=== PATIENT | female | born 1945 | race Caucasian/White ===

== ENCOUNTER 2018-11-05 10:09 | Inpatient (IN) | payer OTHER ==
[2018-11-05] MEDS ORDERED: MORPHINE 2 MG/ML SYR ONE (11:06)
[2018-11-05] MEDS ORDERED: ONDANSETRON 4 MG/2 ML VIAL ONE ×2 (11:06→17:13)
[2018-11-05 11:09] LABS: Absolute Lymphocytes (CBC) 0.8 K/uL (0.7-4.9); Absolute Monocytes 0.6 K/uL (0.1-1.3); Absolute Neutrophil 4.5 K/uL (1.8-8.0); Basophils % 0.3 % (0-1.3); Eosinophils % 0.5 % (0-4.4); Hematocrit 35.8 % (36.0-45.0); Lymphocytes % 13.6 % (15.3-44.8); MPV 8.8 fL (7.6-11.3); Monocytes % 9.7 % (3.3-12.3); RBC Red Blood Cell Count 3.65 M/uL (3.86-4.86)
--- NOTE | 2018-11-05 11:28 | RAD REPORT ---
EXAM DESCRIPTION: CT - CTHCSPWOC - 11/05/2018 11:08 am CLINICAL HISTORY: Fall 2 days earlier, head and neck injury, hip pain COMPARISON: None. TECHNIQUE: Axial 5 mm thick images of the head were obtained. Axial 2 mm thick images of the cervic al spine were obtained with sagittal and coronal reconstruction images generated and reviewed. All CT scans are performed using dose optimization technique as appropriate and may include automated exposure control or mA/KV adjustment according to patient size. FINDINGS: No intracranial hemorrhage, mass, edema or acute intracranial finding. No acute cortical b ased infarction. No cortical edema or sulcal effacement. The patient has moderate severity atrophy an d chronic ischemic change. Ventricles are in proportion to the amount of volume loss. Physiologic and arterial calcifications are present. Partial opacification of the right side mastoid air cells noted . Mucosal thickening and air-fluid level present in the sphenoid sinus along with sclerotic, thickene d sphenoid sinus hill. No globe or orbit abnormality seen. No skull fracture. Cervical body height and alignment are normal. No disk space narrowing. No fracture or acute bony abn ormality. No pathologic bone process. Moderately prominent degenerative change present at the dens C1 level. Facet joint degenerative changes are present. Posterior ligamentous thickening and calcificat ions are present. Central canal detail is inherently limited. No paraspinal mass or hematoma. Patient has an overall fluid retention pattern in the subcutaneous fa tty tissues. Limited lung apex imaging shows bilateral pleural effusions. Reaching the lung apices, t hese are probably large pleural effusions. IMPRESSION: Moderate severity atrophy and chronic ischemic change with no acute intracranial finding . Acute and chronic sphenoid sinusitis and partial opacification of the right mastoid air cells. Prominent cervical spine degenerative change with no acute finding seen. Bilateral pleural effusions probably large as the pleural fluid reaches the each apex.
--- NOTE | 2018-11-05 12:02 | RAD REPORT ---
EXAM DESCRIPTION: RAD - Pelvis - 11/05/2018 11:49 am CLINICAL HISTORY: fall Fall, hip pain COMPARISON: No comparisons FINDINGS: The bones are osteopenic. Degenerative changes are present in both hips. No definitive fin ding to indicate fracture. Atherosclerosis is seen.
--- NOTE | 2018-11-05 12:03 | RAD REPORT ---
EXAM DESCRIPTION: RAD - Hip Right 2 View - 11/05/2018 11:49 am CLINICAL HISTORY: fall 2 days ago;Pain Fall, pain COMPARISON: Chest Single View dated 11/05/2018 FINDINGS: Soft tissues along the lateral aspect of the hip appear prominent which could indicate loc alized swelling or hematoma. Arthritic changes affect the right hip joint. An acute fracture is not s een. If the patient has difficulty with weight-bearing on the right hip, MR imaging would be recommen ded for followup.
--- NOTE | 2018-11-05 12:03 | RAD REPORT ---
EXAM DESCRIPTION: RAD - Hip Left 2 View - 11/05/2018 11:49 am CLINICAL HISTORY: fall;Pain Fall, pain COMPARISON: Pelvis dated 11/05/2018 FINDINGS: Moderate arthritic changes are present involving the left hip. There is slight inward rota tion of the femur which limits the quality of the projection. A definitive hip fracture cannot be con firmed. If the patient has difficulty with weight-bearing on the left hip, MR left hip may be useful for followup assessment.
--- NOTE | 2018-11-05 12:07 | RAD REPORT ---
EXAM DESCRIPTION: CT - Chest Abd Pelvis Wo Con - 11/05/2018 11:48 am CLINICAL HISTORY: Fall, hip pain, chest and abdominal pain COMPARISON: None. TECHNIQUE: Axial 5 millimeter thick images of the chest abdomen and pelvis were obtained without ora l or IV contrast. All CT scans are performed using dose optimization technique as appropriate and may include automated exposure control or mA/KV adjustment according to patient size. FINDINGS: Large bilateral pleural effusions are present occupying approximately 40% of each hemithor ax. Bilateral lower lobe atelectasis is present. There is some minimal alveolar opacification in each upper lobe. Interstitial thickening or edema present. No endobronchial lesions seen. No pneumothorax . No chest wall mass or abnormal axillary lymphadenopathy seen. Mediastinal and hilar regions show n o mass or lymphadenopathy. Dense Coronary artery calcifications are present. No pericardial thickeni ng or effusion. No cardiomegaly. Fluid retention is seen throughout the fatty tissues of the chest. Patient has a old rib fractures. An acute rib fracture is not confirmed. Patient has a fractured manu brium. Fracture line is indistinct which may indicate that it is subacute or incompletely healed. The liver, spleen and pancreas show no acute findings on noncontrast imaging. Large gallstones fill t he gallbladder. No biliary tree dilatation. No hydronephrosis. No obstructing or nonobstructing calculi. Isodense masses and pyelonephritis are n ot excluded. No adrenal abnormalities. No urinary bladder abnormalities. No acute uterine finding. Assessment is limited. Ovaries are atrophic. No adnexal mass. Uterine and pelvic floor calcifications are present. No dilated bowel loops or focal ball bowel wall thickening. Prominent diverticulosis in the tortuous and redundant sigmoid colon. No diverticulitis. No bulky lymphadenopathy, focal mass or omental thic kening. Small amount of ascites is present. Patient has fluid retention throughout the subcutaneous f atty tissues. Patient has a 7.5 centimeter fat filled ventral hernia at the left of midline. No bowel involvement. Neck is 2.5 cm. Disc and bone degenerative changes are present. No proximal femur fracture identifiable. No femoral h ead dislocation. L5 pars defects are present with grade 1 spondylolisthesis. Bones are diffusely oste openic. Prominent degenerative changes and disc space narrowing midthoracic spine. There is approxima tely 50% compression fracture of the L1 body seen as bi concave height loss of the endplates. There i s approximately 30% height loss in the T12 body with central lucency or bone loss. No associated soft tissue paraspinal mass. The central bone loss is not typical of a osteoporotic compression fracture or posttraumatic fracture. Findings are concerning for a marrow replacing process. Infectious/inflamm atory process would be a lesser consideration. No involvement of the pedicles. IMPRESSION: Large bilateral pleural effusions occupying at least 40% of each hemithorax. There is bi lateral lower lobe atelectasis. Patchy interstitial edema or infiltrate changes are present in each u pper lobe, more so on the right. Fracture of the manubrium with fracture line somewhat indistinct. This would favor a subacute or inco mpletely healed fracture. Correlation is needed with any localizing symptoms. No associated mediastin al hematoma or subcutaneous hematoma. No acute traumatic injury to the solid abdominal visceral or bowel. Lucent or lytic changes to the T12 body with approximately 30% loss in height. The central body bone loss changes are not typical for osteopenic or posttraumatic compression fractures. Findings are conc erning for malignancy or marrow replacing process. Infectious etiology not excluded. Approximately 50% compression of the L1 body. This is probably chronic but not fully characterized. Fluid retention throughout the subcutaneous fatty tissues. A small amount of ascites present.
--- NOTE | 2018-11-05 12:10 | RAD REPORT ---
EXAM DESCRIPTION: RAD - Chest Single View - 11/05/2018 11:49 am CLINICAL HISTORY: Hip fracture, fall COMPARISON: January 2009 TECHNIQUE: AP portable chest image was obtained 1127 hours . FINDINGS: Lungs are fibrotic as a baseline. Prominent interstitial markings throughout the lung fiel ds. Atelectasis versus infiltrate left lung base. Patchy opacification in the right upper lobe as wel l. Heart size within normal limits for portable imaging. No acute vascular engorgement. No pneumothor ax. No acute bony abnormality seen. No acute aortic findings suspected. IMPRESSION: No pneumothorax. Extensive interstitial opacification increased over prior imaging. Focal opacification in the retroca rdiac left base and right upper lung field are present. Interstitial opacification could be infiltrate or edema. Left base and right upper lung field finding s are suspicious for pneumonia.
[2018-11-05 12:16] LABS: Protime INR 1.29
[2018-11-05 12:33] LABS: ALT/SGPT 8 U/L (12-78); AST/SGOT 8 U/L (15-37); Albumin 1.7 g/dL (3.4-5.0); Alkaline Phosphatase 99 U/L (45-117); BUN Blood Urea Nitrogen 7 mg/dL (7-18); Bicarbonate 29 mmol/L (21-32); Bilirubin Direct 0.2 mg/dL (0-0.2); Bilirubin Total 0.6 mg/dL (0.2-1.0); Glucose Level 118 mg/dL (74-106); Magnesium 2.1 mg/dL (1.8-2.4); NT PRO-BNP 3328 pg/mL (<450); Potassium 3.6 mmol/L (3.5-5.1); Protein, Total 5.4 g/dL (6.4-8.2); Sodium Level 142 mmol/L (136-145); Troponin (Emerg Dept Use Only) 0.02 ng/mL (0.0-0.045)
--- NOTE | 2018-11-05 13:20 | EDPHYS ---
Physician Documentation [facility] Name: Jeanette Pineda Age: 73 yrs Sex: Female : 1945 Arrival Date: 11/05/2018 Time: 10:20 Bed 3 Private MD: ED Farhat Lopez HPI: 11/05 10:50 This 73 yrs old Female presents to ER via EMS with complaints of Fall Injury, cp Hip Pain. 10:50 Details of fall: The patient fell from an upright position. Onset: The symptoms/episode cp began/occurred 2 day(s) ago. Associated injuries: The patient sustained injury to the head, contusion, pelvis and left hip. Historical: - Allergies: 10:23 Iodine; sv - Home Meds: 10:37 None [Active]; aj1 - PMHx: 10:37 Diabetes - NIDDM; CVA; aj1 - PSHx: 10:37 Knee surgery; aj1 - Immunization history:: Flu vaccine is not up to date. - Social history:: Smoking status: Patient uses tobacco products, smokes two packs cigarettes per day. - Ebola Screening: : Patient denies travel to an Ebola-affected area in the 21 days before illness onset. ROS: 11:00 Constitutional: Positive for poor PO intake, Negative for fever. cp 11:00 Cardiovascular: Negative for chest pain, edema. cp 11:00 Respiratory: Negative for cough, wheezing. 11:00 Abdomen/GI: Negative for abdominal pain, vomiting, diarrhea, constipation, anorexia, black/tarry stool, rectal bleeding. 11:00 MS/extremity: Positive for pain, tenderness, of the left hip. 11:00 Neuro: Positive for weakness, Negative for altered mental status, headache, loss of consciousness. 11:00 All other systems are negative. Exam: 11:05 Constitutional: The patient appears in no acute distress, alert, awake, cp non-diaphoretic, non-toxic, well developed, well nourished, uncomfortable. 11:05 Head/Face: Normocephalic, atraumatic. cp 11:05 Eyes: Periorbital structures: appear normal, Pupils: equal, round, and reactive to cp light and accomodation, Extraocular movements: intact throughout, Conjunctiva: normal, no exudate, no injection, Sclera: no appreciated abnormality, Lids and lashes: appear normal, bilaterally. 11:05 ENT: External ear(s): are unremarkable, Ear canal(s): are normal, clear, TM's: bulging, is not appreciated, bilaterally, dullness, bilaterally, erythema, is not appreciated, bilaterally, Nose: is normal, Mouth: Lips: dry, Oral mucosa: pink and intact, moist, Posterior pharynx: Airway: no evidence of obstruction, patent, Uvula: midline, swelling, is not appreciated, erythema, is not appreciated, exudate, is not appreciated, Voice: is normal. 11:05 Neck: C-spine: vertebral tenderness, is not appreciated, crepitus, is not appreciated, cp ROM/movement: is normal, is supple, without pain, no range of motions limitations, no meningismus, no nuchal rigidity. 11:05 Chest/axilla: Inspection: normal, Palpation: is normal, no crepitus, no tenderness. 11:05 Cardiovascular: Rate: tachycardic, Rhythm: regular, JVD: is not appreciated. 11:05 Respiratory: the patient does not display signs of respiratory distress, Respirations: labored breathing, that is mild, accessory muscle usage, is absent, shallow respirations, that is mild, splinting, is not noted, Breath sounds: decreased breath sounds, that are mild, throughout, rhonchi, that are mild, are heard diffusely, stridor, is not appreciated. 11:05 Abdomen/GI: Inspection: abdomen appears normal, Bowel sounds: active, all quadrants, Palpation: abdomen is soft and non-tender, in all quadrants, rebound tenderness, is not appreciated, involuntary guarding, is not appreciated. 11:05 Musculoskeletal/extremity: Extremities: grossly normal except: noted in the right hip and left hip: tenderness. 11:05 Skin: cellulitis, is not appreciated, no rash present. 11:05 Neuro: Orientation: to person, place, situation, Mentation: responsive to voice able to follow commands, Cerebellar function: Romberg testing is negative, Motor: moves all fours, general weakness w/o focal deficits. 11:09 ECG was reviewed by the Attending Physician. cp Vital Signs: 10:23 BP 149 / 96; Pulse 103; Resp 18; Pulse Ox 91% ; sv 13:08 BP 105 / 90; Pulse 98; Resp 17; Pulse Ox 93% ; sv 13:45 BP 131 / 89; Pulse 98; Resp 20; Pulse Ox 100% ; sv 14:15 BP 148 / 69; Pulse 111; Resp 18; Pulse Ox 99% on 2 lpm NC; sv 17:26 BP 121 / 67; Pulse 105; Resp 18; Pulse Ox 94% on 2 lpm NC; sv 18:00 BP 116 / 56; Pulse 104; Resp 18; Pulse Ox 97% on 2 lpm NC; sv 19:00 BP 103 / 57; Pulse 100; Resp 17; Pulse Ox 97% on 2 lpm NC; lp1 19:52 BP 121 / 58; Pulse 98; Resp 15 S; Pulse Ox 100% on 2 lpm NC; jd3 20:00 BP 131 / 64; Pulse 100; Resp 19; Pulse Ox 97% on 2 lpm NC; lp1 MDM: 10:33 Patient medically screened. cp 13:00 Data reviewed: vital signs, nurses notes, lab test result(s), EKG, radiologic studies, cp CT scan, plain films. 13:00 Test interpretation: by ED physician or midlevel provider: ECG, plain radiologic cp studies. Response to treatment: the patient's symptoms have mildly improved after treatment, and as a result, I will admit patient. 11/05 10:43 Order name: Basic Metabolic Panel; Complete Time: 12:44 cp 11/05 12:45 Interpretation: Normal except: GLUC 118; CA 7.3. cp 11/05 10:43 Order name: CBC with Diff; Complete Time: 11:19 cp 11/05 12:19 Interpretation: Normal except: RBC 3.65; HGB 11.9; HCT 35.8; RDW 16.9; ROGELIO% 75.9; LYM% cp 13.6. 11/05 10:43 Order name: LFT's; Complete Time: 12:44 cp 11/05 10:43 Order name: Magnesium; Complete Time: 12:44 cp 11/05 10:43 Order name: NT PRO-BNP; Complete Time: 12:44 cp 11/05 10:43 Order name: PT-INR; Complete Time: 12:44 cp 11/05 10:43 Order name: XRAY Pelvis; Complete Time: 12:14 cp 11/05 10:43 Order name: Troponin (emerg Dept Use Only); Complete Time: 12:44 cp 11/05 10:43 Order name: XRAY Chest (1 view); Complete Time: 12:14 cp 11/05 10:43 Order name: CT Head C Spine; Complete Time: 12:03 cp 11/05 12:03 Interpretation: Reviewed report. cp 11/05 10:43 Order name: XRAY Hip RIGHT 2 view; Complete Time: 12:14 cp 11/05 12:49 Order name: Urine Microscopic Only; Complete Time: 14:46 cp 11/05 18:10 Interpretation: Normal except: UWBC 20-50; UBACT LOADED. cp 11/05 14:09 Order name: Urine Dipstick--Ancillary (enter results); Complete Time: 14:46 bd 11/05 14:22 Order name: Urine Culture EDMS 11/05 10:43 Order name: EKG; Complete Time: 10:44 cp 11/05 10:43 Order name: Cardiac monitoring; Complete Time: 10:55 cp 11/05 11:19 Order name: XRAY Hip LEFT 2 view; Complete Time: 12:14 cp 11/05 11:37 Order name: Chest Abd Pelvis Wo Con; Complete Time: 12:14 EDMS 11/05 13:24 Order name: Echo with Doppler EDMS 11/05 13:42 Order name: Spine Lumbar W/Wo Cont EDMS 11/05 15:12 Order name: Hip Bilat Wo Cont; Complete Time: 17:41 EDMS 11/05 10:43 Order name: EKG - Nurse/Tech; Complete Time: 10:55 cp 11/05 10:43 Order name: IV Saline Lock; Complete Time: 11:11 cp 11/05 10:43 Order name: Labs collected and sent; Complete Time: 11:11 cp 11/05 10:43 Order name: O2 Per Protocol; Complete Time: 10:55 cp 11/05 10:43 Order name: O2 Sat Monitoring; Complete Time: 10:55 cp 11/05 11:12 Order name: Labs - recollect needed; Complete Time: 13:00 bd 11/05 12:49 Order name: Urine Dipstick-Ancillary (obtain specimen); Complete Time: 13:49 cp 11/05 12:49 Order name: Dan; Complete Time: 13:49 cp EC:09 Rate is 100 beats/min. Rhythm is regular. WA interval is normal. QRS interval is cp prolonged at 120 msec. QT interval is prolonged. T waves are Inverted in lead V2. Interpreted by me. Reviewed by me. Administered Medications: 11:11 Drug: morphine 2 mg Route: IVP; Site: left antecubital; aj1 12:00 Follow up: Response: No adverse reaction aj1 11:11 Drug: Zofran 4 mg Route: IVP; Site: left antecubital; aj1 12:00 Follow up: Response: No adverse reaction aj1 13:49 Drug: Lasix 20 mg Route: IVP; Site: right antecubital; aj1 14:00 Follow up: Response: No adverse reaction aj1 13:50 Drug: Xopenex (3) 1.25 mg Route: Inhalation; aj1 17:00 Drug: Rocephin 1 grams Route: IV; Rate: bolus; Site: right antecubital; aj1 17:05 Follow up: IV Status: Completed infusion; IV Intake: 10ml aj1 17:17 Drug: Zofran 4 mg Route: IVP; Site: right antecubital; aj1 18:29 Follow up: Response: No adverse reaction aj1 Disposition: 15:00 Chart complete. cp 11/06 08:01 Co-signature as Attending Physician, Farhat Swift MD I agree with the assessment and chris plan of care. Disposition: 11/05/18 13:19 Hospitalization ordered by Chantelle Henson for Inpatient Admission. Preliminary diagnosis are Unspecified combined systolic (congestive) and diastolic (congestive) heart failure, Fall on same level from slipping, tripping and stumbling, Urinary tract infection, site not specified, L1 compression fracture, Pleural effusion in conditions classified elsewhere - bilateral. - Bed requested for Telemetry/MedSurg (Inpatient). - Status is Inpatient Admission. lp1 - Condition is Stable. - Problem is new. - Symptoms have improved. UTI on Admission? Yes Signatures: Dispatcher [employer] EDMS Komal Ashton Angela, RN RN aj1 Stephanie Souza RN RN sv Anderson, Corey, MD MD cha Pena, Laura, RN RN lp1 Farhat Diaz PA PA cp Garcia, Cindy, RN RN cg Corrections: (The following items were deleted from the chart) 11/05 12:45 12:45 Normal except: GLUC 118. cp cp 13:42 13:24 Abdomen With Cont ordered. [facility] EDMS 13:44 13:24 Pelvis With Cont ordered. [facility] EDPR 14:47 13:19 Hospitalization Ordered by Chantelle Henson MD for Inpatient Admission. Preliminary cp diagnosis is Unspecified combined systolic (congestive) and diastolic (congestive) heart failure; Fall on same level from slipping, tripping and stumbling. Bed requested for Telemetry/MedSurg (Inpatient). Status is Inpatient Admission. Condition is Stable. Problem is new. Symptoms have improved. UTI on Admission? No. cp 15:12 13:44 Hip Left Wo Cont ordered. [facility] 18:13 14:47 11/05/2018 13:19 Hospitalization Ordered by Chantelle Henson MD for Inpatient cp Admission. Preliminary diagnosis is Unspecified combined systolic (congestive) and diastolic (congestive) heart failure; Fall on same level from slipping, tripping and stumbling; Urinary tract infection, site not specified. Bed requested for Telemetry/MedSurg (Inpatient). Status is Inpatient Admission. Condition is Stable. Problem is new. Symptoms have improved. UTI on Admission? Yes. cp 19:47 18:13 11/05/2018 13:19 Hospitalization Ordered by Chantelle Henson MD for Inpatient cg Admission. Preliminary diagnosis is Unspecified combined systolic (congestive) and diastolic (congestive) heart failure; Fall on same level from slipping, tripping and stumbling; Urinary tract infection, site not specified; L1 compression fracture; Pleural effusion in conditions classified elsewhere - bilateral. Bed requested for Telemetry/MedSurg (Inpatient). Status is Inpatient Admission. Condition is Stable. Problem is new. Symptoms have improved. UTI on Admission? Yes. cp 20:55 19:47 11/05/2018 13:19 Hospitalization Ordered by Chantelle Henson MD for Inpatient lp1 Admission. Preliminary diagnosis is Unspecified combined systolic (congestive) and diastolic (congestive) heart failure; Fall on same level from slipping, tripping and stumbling; Urinary tract infection, site not specified; L1 compression fracture; Pleural effusion in conditions classified elsewhere - bilateral. Bed requested for Telemetry/MedSurg (Inpatient). Status is Inpatient Admission. Condition is Stable. Problem is new. Symptoms have improved. UTI on Admission? Yes. cg
--- NOTE | 2018-11-05 13:20 | ER ---
Nurse's Notes [facility] Name: Jeanette Pineda Age: 73 yrs Sex: Female : 1945 Arrival Date: 11/05/2018 Time: 10:20 Bed 3 Private MD: Diagnosis: Unspecified combined systolic (congestive) and diastolic (congestive) heart failure;Fall on same level from slipping, tripping and stumbling;Urinary tract infection, site not specified;L1 compression fracture;Pleural effusion in conditions classified elsewhere-bilateral Presentation: 11/05 10:21 Presenting complaint: EMS states: fall 2 days ago, was found in bed by EMS. EMS reports sv left hip is shortened and rotated out and right hip has deformity, c/o right hip pain. 18G L AC BP 189/98 HR-105 88% RA, placed on O2 \T\ 6L per NC O2 sat up to 94%. Transition of care: patient was not received from another setting of care. Onset of symptoms was November 03, 2018. Care prior to arrival: IV initiated. 18 GA, in the left antecubital area, Oxygen administered. via nasal cannula. 10:21 Method Of Arrival: EMS: [facility] sv 10:21 Acuity: DAVE 3 sv 10:34 Risk Assessment: Do you want to hurt yourself or someone else? Patient reports no aj1 desire to harm self or others. Initial Sepsis Screen: Does the patient meet any 2 criteria? No. Patient's initial sepsis screen is negative. Does the patient have a suspected source of infection? No. Patient's initial sepsis screen is negative. Triage Assessment: 10:34 General: Appears in no apparent distress. comfortable, Behavior is calm, cooperative, aj1 appropriate for age. Pain: Complains of pain in right hip Pain currently is 0 out of 10 on a pain scale. at worst was 8 out of 10 on a pain scale. Neuro: Level of Consciousness is awake, alert, obeys commands. Historical: - Allergies: 10:23 Iodine; sv - Home Meds: 10:37 None [Active]; aj1 - PMHx: 10:37 Diabetes - NIDDM; CVA; aj1 - PSHx: 10:37 Knee surgery; aj1 - Immunization history:: Flu vaccine is not up to date. - Social history:: Smoking status: Patient uses tobacco products, smokes two packs cigarettes per day. - Ebola Screening: : Patient denies travel to an Ebola-affected area in the 21 days before illness onset. Screenin:45 Abuse screen: Denies threats or abuse. Denies injuries from another. Nutritional aj1 screening: No deficits noted. Tuberculosis screening: No symptoms or risk factors identified. 19:57 Fall Risk Total Meza Fall Scale indicates High Risk Score (45 or more points). Fall lp1 prevention measures have been instituted. Side Rails Up X 2 Family Present and informed to notify staff if the need to leave the bedside As available patient and family educated on Fall Prevention Program and Strategies. Assessment: 10:45 General: Appears in no apparent distress. comfortable, Behavior is agitated. General: aj1 Appears unkempt. Pain: Denies pain. Neuro: Level of Consciousness is awake, alert, obeys commands, forgetful. Neuro: Oriented to person, place, time, situation, Speech is normal. Cardiovascular: Heart tones S1 S2 present Patient's skin is warm and dry. Rhythm is sinus tachycardia. Respiratory: Airway is patent Respiratory effort is even, unlabored, Respiratory pattern is regular, symmetrical, Breath sounds with crackles bilaterally. Denies shortness of breath. GI: No signs and/or symptoms were reported involving the gastrointestinal system. : No signs and/or symptoms were reported regarding the genitourinary system. EENT: No signs and/or symptoms were reported regarding the EENT system. Derm: No signs and/or symptoms reported regarding the dermatologic system. Musculoskeletal: Range of motion: limited in right hip Patient reports pain in right hip whenever she moves. 10:48 Reassessment: Patient taken to CT via stretcher. aj1 11:45 Reassessment: Patient appears in no apparent distress at this time. No changes from aj1 previously documented assessment. Patient and/or family updated on plan of care and expected duration. Pain level reassessed. Patient is alert, oriented x 3, equal unlabored respirations, skin warm/dry/pink. 12:45 Reassessment: Patient appears in no apparent distress at this time. No changes from aj1 previously documented assessment. Patient and/or family updated on plan of care and expected duration. Pain level reassessed. Patient is alert, oriented x 3, equal unlabored respirations, skin warm/dry/pink. 13:45 Reassessment: Patient appears in no apparent distress at this time. No changes from aj1 previously documented assessment. Patient and/or family updated on plan of care and expected duration. Pain level reassessed. Patient is alert, oriented x 3, equal unlabored respirations, skin warm/dry/pink. 14:00 Reassessment: No admission orders have been put in by admitting physician, Dr. Henson. aj1 Admission is on hold pending patient's MRI results per Dr. Henson. 14:45 Reassessment: Patient and/or family updated on plan of care and expected duration. Pain aj1 level reassessed. General: Appears in no apparent distress. comfortable, Behavior is calm, cooperative. Pain: Denies pain. Neuro: Level of Consciousness is awake, alert, obeys commands, Oriented to person, place, time, situation, Speech is normal. Cardiovascular: Patient's skin is warm and dry. Respiratory: Airway is patent Respiratory effort is even, unlabored, Respiratory pattern is regular, symmetrical. Derm: No signs and/or symptoms reported regarding the dermatologic system. Skin is pink, warm \T\ dry. normal. 15:05 Reassessment: Patient transported to MRI via stretcher. aj1 16:52 Reassessment: Patient transported back to room via stretcher. aj1 17:15 Reassessment: Patient appears in no apparent distress at this time. No changes from aj1 previously documented assessment. Patient and/or family updated on plan of care and expected duration. Pain level reassessed. Patient is alert, oriented x 3, equal unlabored respirations, skin warm/dry/pink. 18:13 Reassessment: Patient appears in no apparent distress at this time. No changes from aj1 previously documented assessment. Patient and/or family updated on plan of care and expected duration. Pain level reassessed. Patient is alert, oriented x 3, equal unlabored respirations, skin warm/dry/pink. Awaiting admission orders from Dr. Henson. 19:51 Reassessment: Patient appears in no apparent distress at this time. No changes from jd3 previously documented assessment. Patient and/or family updated on plan of care and expected duration. Pain level reassessed. 20:15 Reassessment: report given to Kelly LU jd3 Vital Signs: 10:23 BP 149 / 96; Pulse 103; Resp 18; Pulse Ox 91% ; sv 13:08 BP 105 / 90; Pulse 98; Resp 17; Pulse Ox 93% ; sv 13:45 BP 131 / 89; Pulse 98; Resp 20; Pulse Ox 100% ; sv 14:15 BP 148 / 69; Pulse 111; Resp 18; Pulse Ox 99% on 2 lpm NC; sv 17:26 BP 121 / 67; Pulse 105; Resp 18; Pulse Ox 94% on 2 lpm NC; sv 18:00 BP 116 / 56; Pulse 104; Resp 18; Pulse Ox 97% on 2 lpm NC; sv 19:00 BP 103 / 57; Pulse 100; Resp 17; Pulse Ox 97% on 2 lpm NC; lp1 19:52 BP 121 / 58; Pulse 98; Resp 15 S; Pulse Ox 100% on 2 lpm NC; jd3 20:00 BP 131 / 64; Pulse 100; Resp 19; Pulse Ox 97% on 2 lpm NC; lp1 ED Course: 10:20 Patient arrived in ED. sv 10:23 Triage completed. sv 10:24 Bridget Ansari, ARIELA is Primary Nurse. aj1 10:33 Fahrat Diaz PA is PHCP. cp 10:33 Farhat Swift MD is Attending Physician. cp 10:34 Arm band placed on. aj1 10:45 Patient has correct armband on for positive identification. Bed in low position. Call aj1 light in reach. Side rails up X2. Adult w/ patient. vehicle monitor technician on. Pulse ox on. NIBP on. 10:45 No provider procedures requiring assistance completed. Inserted saline lock: 18 gauge aj1 in right antecubital area, using aseptic technique. Blood collected. 11:04 EKG done, by database technician. reviewed by Farhat JOE. at1 11:[address] via stretcher. sw 11:06 CT completed. Patient tolerated procedure well. Patient moved to radiology via stretcher. 11:09 CT Head C Spine In Process Unspecified. EDMS 11:47 XRAY Pelvis In Process Unspecified. EDMS 11:47 XRAY Chest (1 view) In Process Unspecified. EDMS 11:47 XRAY Hip RIGHT 2 view In Process Unspecified. EDMS 11:47 XRAY Hip LEFT 2 view In Process Unspecified. EDMS 11:47 Chest Abd Pelvis Wo Con In Process Unspecified. EDMS 13:18 Chantelle Henson MD is Hospitalizing Provider. cp 13:52 Urine collected: Dan catheter specimen, cloudy, savannah colored. jb1 13:54 Dan cath inserted, using sterile technique, 16 Fr., by tn, balloon inflated, to aj1 gravity drainage, urine specimen collected. Patient tolerated well. 15:00 Patient moved to MRI via stretcher. ka 15:20 Hip Bilat Wo Cont In Process Unspecified. EDMS 16:37 Spine Lumbar W/Wo Cont In Process Unspecified. EDMS 19:57 Patient admitted, IV remains in place. lp1 Administered Medications: 11:11 Drug: morphine 2 mg Route: IVP; Site: left antecubital; aj1 12:00 Follow up: Response: No adverse reaction aj1 11:11 Drug: Zofran 4 mg Route: IVP; Site: left antecubital; aj1 12:00 Follow up: Response: No adverse reaction aj1 13:49 Drug: Lasix 20 mg Route: IVP; Site: right antecubital; aj1 14:00 Follow up: Response: No adverse reaction aj1 13:50 Drug: Xopenex (3) 1.25 mg Route: Inhalation; aj1 17:00 Drug: Rocephin 1 grams Route: IV; Rate: bolus; Site: right antecubital; aj1 17:05 Follow up: IV Status: Completed infusion; IV Intake: 10ml aj1 17:17 Drug: Zofran 4 mg Route: IVP; Site: right antecubital; aj1 18:29 Follow up: Response: No adverse reaction aj1 Intake: 17:05 IV: 10ml; Total: 10ml. aj1 Outcome: 13:19 Decision to Hospitalize by Provider. cp 19:58 Condition: stable lp1 19:58 Instructed on the need for admit. 20:15 Admitted to Med/surg accompanied by tech, via stretcher, room 402, with oxygen, with jd3 chart, Report called to Kelly TITUS 20:55 Patient left the ED. lp1 Signatures: Dispatcher [employer] EDMS Dixon Knight jb1 Bridget Ansari, RN RN aj1 Stephanie Souza RN RN sv Pena, Laura, RN RN lp1 Elle Montoya, english lecturer EKG Tat1 Jose, Millicent sw Page, Farhat, Claire Gonzalez cp, Jonathon, RN RN jd3 Corrections: (The following items were deleted from the chart) 16:53 15:05 Reassessment: Patient transported to [place] via stretcher aj1 aj1
[2018-11-05] MEDS ORDERED: FUROSEMIDE 20 MG/ 2ML VIAL ONE (13:38)
[2018-11-05] MEDS ORDERED: LEVALBUTEROL 1.25 MG/3 ML NEB ONE (13:39)
[2018-11-05 14:15] LABS: Urine Blood TRACE (NEG); Urine Glucose NEGATIVE (NEG); Urine Protein 2+ (NEG)
[2018-11-05 14:17] LABS: Urine Bacteria LOADED /HPF (<20); Urine Culture Reflex Order REFLEXED; Urine RBC <5 /HPF (NONE SEEN)
--- NOTE | 2018-11-05 16:57 | RAD REPORT ---
EXAM DESCRIPTION: MRI - Hip Bilat Wo Cont - 11/05/2018 4:39 pm CLINICAL HISTORY: Pelvic and hip pain, fall, pain out of proportion to x-ray findings COMPARISON: Pelvis and right hip exam November 05 TECHNIQUE: Multiplanar imaging of the pelvis and hip joints performed using T1 weighted, T2 fat satu ration, proton density fat saturation and T2 stir sequencing. FINDINGS: No fracture or dislocation of either proximal femur. No AVN or focal femoral head abnormal ity. No acute proximal femur finding. No fracture of the bony pelvis identifiable. Sacral ala is inta ct. No suspicious finding along the pelvic floor. Dan catheter is in place. No large mass or hematoma in the soft tissues. There is some contusion and edema signal lateral to th e hip joint and greater trochanter. No joint effusion seen. IMPRESSION: No fracture of the bony pelvis. No fracture of either proximal femur. Contusion changes are present lateral to the right hip joint and there are additional edema changes a round the musculature each medial thigh and lateral left pelvic soft tissues.
[2018-11-05] MEDS ORDERED: CEFTRIAXONE/SWI 1gm 1 GM/10 ML SYR ONE (17:09)
[2018-11-05] MEDS: INSULIN -REGULAR HUMAN 50 UNIT/0.5 ML ML SQ SCH (21:24)
[2018-11-05] MEDS ORDERED: D50W 25 GM/50 ML SYRINGE IV PRN (21:24)
[2018-11-05] MEDS ORDERED: NA CHLORIDE 0.9% 1,000 ML IV SCH ×2 (21:24→23:00)
[2018-11-05] MEDS ORDERED: GLUCAGON 1 MG/VIAL IM PRN (21:24)
[2018-11-05] MEDS ORDERED: ZIPRASIDONE MESYLA 20 MG/VIAL IM ONE (22:21)
[2018-11-05] MEDS: WATER FOR INJ,STERILE 10 ML IM PRN (22:55)
[2018-11-05] MEDS ORDERED: ALBUMIN HUMAN 25% 100 ML IV ONE (23:28)
[2018-11-05] MEDS: METHYLPREDNISOLONE 125 MG INJ IV SCH (23:39)
[2018-11-06] MEDS: FUROSEMIDE 40 MG/4 ML VIAL IV SCH ×3 (00:15→17:13)
[2018-11-06 01:44] VITALS: BMI 29.3
[2018-11-06] MEDS: ALBUTEROL 2.5 MG/3 ML NEB SOL NEB SCH ×4 (02:00→20:00)
[2018-11-06] MEDS: IPRATROPIUM BROM 0.5MG/2.5ML NEB SCH ×4 (02:00→20:00)
[2018-11-06] MEDS: METHYLPREDNISOLONE 125 MG INJ IV SCH (05:11)
[2018-11-06] MEDS: METOPROLOL TAR 25 MG TAB PO SCH ×2 (05:45→17:13)
[2018-11-06] MEDS ORDERED: ALBUMIN HUMAN 25% 50 ML IV ONE (06:00)
[2018-11-06] MEDS ORDERED: FUROSEMIDE 20 MG/ 2ML VIAL IV ONE (06:00)
--- NOTE | 2018-11-06 07:23 | RAD REPORT ---
EXAM DESCRIPTION: MRI - Spine Lumbar W/Wo Cont - 11/05/2018 4:40 pm CLINICAL HISTORY: Fall, pain, pain out of proportion to radiographic findings COMPARISON: CT imaging November 05, 2018. TECHNIQUE: Sagittal T1-weighted, T2-weighted and T2-STIR weighted sequences were obtained. Axial T1- weighted and heavily T2-weighted sequences were obtained through the lumbar disc levels. Sagittal and axial post-contrast. T1-weighted images were obtained following ml on Gd contrast material. FINDINGS: Overall image detail is diminished due to body habitus and nonspecific technical factors. L2-L5 bodies are normal in height. Scattered fatty marrow degenerative changes are present. Chronic f atty marrow degenerative changes abut the endplates at the L5-S1 level. L5 spondylolysis with grade 1 spondylolisthesis noted. Approximately 50% compression fracture of the L1 body is present. There is mixed hypointense and hype rintense signal on T1 imaging. Enhancement is present on the postcontrast imaging. Mixed heterogeneou s hyperintense and hypointense T2 signal present. Osteoporotic compression fracture etiology is favor ed over infection or tumor. There is still active marrow changes. This is likely a subacute fracture. A more aggressive etiologies are not excluded due to the subsequently detailed T12 findings. The T12 body shows approximately 30% loss in height. There is hypointense T1 signal. A very pronounce d relatively homogeneous hyperintense T2 signal pattern is seen. T12 body remains hypointense on the postcontrast imaging. Enhancement of the T12-L1 disc space is not seen. Signal abnormalities extend i nto the left pedicle. Edema signal along with enhancement noted in the fatty tissues and left posteri or paraspinal musculature near the left facet joint. CT imaging shows significant bone loss change wi thin the body. No bone loss change along the posterior wall or pedicles. T12 findings are not classic for anyone the etiology. Signal pattern is not typical for benign osteop orotic compression. Provided history does not indicate a specific pain near the thoracolumbar junctio n. History indicated pelvic and hip pain symptoms. Likewise, presentation is not classic for neoplast ic etiology. Both of these etiologies are still within the differential. Osteomyelitis -possibly nut dehydrator operator char- would also be a consideration. If the patient is diabetic or otherwise compromised, osteomyeliti s uneven Dillon disease would be considerations. Biopsy, not available at this facility, may be needed for definitive diagnosis. Correlation is needed with any clinical or laboratory findings that may in dicate infectious etiology. Conus is normal with no clumping or thickening of the cauda equina. No disc herniations are present. No significant disc bulge into the central canal. There is pseudo bu lge created by the L5 subluxation. There is central spinal stenosis at 9 mm at the T12 and L1 region. No other central spinal stenosis. No critical foraminal stenoses identified. Sacral ala are better visualized on this examination than the hip MRI study. There is hypointense T1 and hyperintense T2 signal in the right sacral ala extending into the lateral aspect of the S1-S2 bod ies. On the November 05 CT study, sacral ala fracture line is not identified. No bone destruction of the sacrum seen on CT imaging. IMPRESSION: Abnormal signal intensity in the right sacral ala extending into the lateral aspect of t he right side S1-S2 bodies. Posttraumatic or insufficiency sacral ala fracture suspected. Abnormal signal intensity pattern throughout the 30% compressed T12 body with bone loss changes evide nt on CT imaging. As detailed above, no definitive etiology for these findings. Atypical presentation of posttraumatic or osteoporotic compression fracture, atypical presentation of metastatic disease a nd osteomyelitis (acute or chronic) would be considerations. Dillon disease would be a consideration i f the patient is diabetic or otherwise immunocompromised. Biopsy of the lesion (not available at this facility) may be needed for definitive diagnosis. L1 50% compression fracture. The fracture is probably subacute. There is some remnant edema signal wi thin the body as well as enhancement. Differential considerations for the adjacent T12 abnormality no t currently suspected for L1. T12-L1 discitis not currently suspected. No disc herniation is seen. There is mild central spinal stenosis T12-L1 region. Bilateral foraminal stenosis at L5-S1 due to the spondylolisthesis.
[2018-11-06] MEDS: INSULIN -REGULAR HUMAN 50 UNIT/0.5 ML ML SQ SCH ×4 (07:30→20:15)
[2018-11-06 07:39] LABS: Bilirubin Total 0.4 mg/dL (0.2-1.0); Magnesium 2.1 mg/dL (1.8-2.4); Phosphorus 4.2 mg/dL (2.5-4.9); Potassium 3.7 mmol/L (3.5-5.1); Protein, Total 5.3 g/dL (6.4-8.2)
[2018-11-06 07:44] LABS: Absolute Lymphocytes (CBC) 0.3 K/uL (0.7-4.9); Absolute Monocytes 0.1 K/uL (0.1-1.3); Absolute Neutrophil 4.3 K/uL (1.8-8.0); Hematocrit 28.6 % (36.0-45.0); Lymphocytes % 7.4 % (15.3-44.8); MPV 8.9 fL (7.6-11.3); Monocytes % 1.6 % (3.3-12.3); RBC Red Blood Cell Count 2.92 M/uL (3.86-4.86)
--- NOTE | 2018-11-06 08:33 | ECHO ---
HEIGHT: 5 ft 3 in WEIGHT: 165 lb 12.8 oz DATE OF STUDY: 11/05/[address]: Farhat Swift MD 2-DIMENSIONAL: YES M.MODE: YES DOPPLER: YES COLOR FLOW: YES TDS: YES PORTABLE: NO DEFINITY: NO BUBBLE STUDY: NO DIAGNOSIS: FALL CARDIAC HISTORY: CATHERIZATION: NO SURGERY: NO PROSTHETIC VALVE: NO PACEMAKER: NO MEASUREMENTS (cm) DIASTOLIC (NORMALS) SYSTOLIC (NORMALS) IVSd 0.9 (0.6-1.2) LA Diam 3.1 (1.9-4.0) LVEF 76% LVIDd 4.0 (3.5-5.7) LVIDs 2.2 (2.0-3.5) %FS 44% LVPWd 1.1 (0.6-1.2) Ao Diam 3.3 (2.0-3.7) 2 DIMENSIONAL ASSESSMENT: RIGHT ATRIUM: NORMAL LEFT ATRIUM: NORMAL RIGHT VENTRICLE: NORMAL LEFT VENTRICLE: NORMAL TRICUSPID VALVE: NORMAL MITRAL VALVE: MITRAL ANNULAR CALCIFICATION PULMONIC VALVE: NORMAL AORTIC VALVE: SCLEROSIS PERICARDIAL EFFUSION: NONE AORTIC ROOT: NORMAL LEFT VENTRICULAR WALL MOTION: DOPPLER/COLOR FLOW: NO AORTIC STENOSIS OR AORTIC REGURGITATION. IMPAIRED LEFT VENTRICULAR RELAXATION. MILD TRICUSPID REGURGITATION. NORMAL RIGHT VENTRICULAR SYSTOLIC PRESSURE. COMMENTS: NORMAL LEFT VENTRICULAR EJECTION FRACTION. MITRAL ANNULAR CALCIFICATION. AORTIC SCLEROSIS WITH NO AORTIC STENOSIS/AORTIC REGURGITATION. IMPAIRED LEFT VENTRICULAR RELAXATION. MILD TRICUSPID REGURGITATION. TECHNOLOGIST: CALE GARCIA
[2018-11-06 08:59] LABS: Anisocytosis 1+; Blood Morphology Comment NOTED (NOT SEEN); Platelet Estimate ADEQ
[2018-11-06] MEDS ORDERED: CEFTRIAXONE 1 GM/NS 50 ML 1 GM/50 ML BAG IV SCH (09:00)
[2018-11-06] MEDS ORDERED: CEFTRIAXONE/SWI 1gm 1 GM/10 ML SYR IV SCH (09:00)
--- NOTE | 2018-11-06 09:57 | P.HP ---
Certification for Inpatient Patient admitted to: Inpatient With expected LOS: >2 Midnights Patient will require the following post-hospital care: None Practitioner: I am a practitioner with admitting privileges, knowledge of patient current condition, hospital course, and medical plan of care. Services: Services provided to patient in accordance with Admission requirements found in Title 42 Section 412.3 of the Code of Federal Regulations Patient History Date of Service: 11/05/18 Reason for admission: Hypoxemia; generalized weakness; untreated medical problems History of Present Illness: Patient is a 73-year-old female who has a history of falling at her home. However, over the last 6-7 years she has refused any medical care from her family. They have tried to encourage her to go to the doctor which she is chosen to not go see a physician. Apparently, 2 years ago she did well slurred speech in the family or still not able to get her to go into the hospital. Her symptoms included right-sided weakness which gradually improved. Apparently Ms Pineda has decided that she does not want any intervention. But because she has become more debilitated the family was trying to get her into an assisted or independent living. Because of her weakness she really does not qualify to go into assisted or independent living. She is not able to really do anything for herself. She would be better suited to go to a halfway. And with the fact that she does not want any aggressive measures she would also benefit from being a hospice patient because of her end-stage COPD. She is bilateral pleural effusions which could also be a malignant pleural effusion. With her not wanting any interventions, it may be impossible to figure this out. With her refusing most of her treatment, I think it would be best to approach her for hospice care. I spoke to her son in details and he seems accepting of this fact as she is refusing treatment and wanting her son to take her home. Allergies iodine Allergy (Verified 11/05/18 14:36) Rash Home Medications: NK [No Home Meds] 11/05/18 - Past Medical/Surgical History Has patient received pneumonia vaccine in the past: No Diabetic: No -: Type 2 diabetes -: CVA -: COPD -: CHF -: Total knee arthroplasty - Family History Father Family History: Reviewed- Non-Contributory - Social History Smoking Status: Heavy Tobacco smoker (>10 cigarettes/day) Alcohol use: No CD- Drugs: No Caffeine use: No Place of Residence: Home Review of Systems 10-point ROS is otherwise unremarkable Physical Examination - Vital Signs Temperature: 99.5 F Blood Pressure: 136/70 Pulse: 96 Respirations: 18 Pulse Ox (%): 89 - Physical Exam General: Alert, In no apparent distress, Oriented x2 HEENT: Atraumatic, Normocephalic, PERRLA Neck: Supple, 2+ carotid pulse no bruit, JVD not distended, No Thyromegaly, No LAD Respiratory: Crackles/rales, Expiratory wheezes Cardiovascular: Regular rate/rhythm, Normal S1 S2, No murmurs Gastrointestinal: Normal bowel sounds, Soft and benign, Non-distended, No tenderness Musculoskeletal: No clubbing, Swelling Integumentary: Other (Onychomycosis) Neurological: Abnormal gait, Abnormal speech, Abnormal strength, Abnormal tone, Abnormal sensation, Abnormal cranial nerve function Lymphatics: No axilla or inguinal lymphadenopathy - Studies Laboratory Data (last 24 hrs) 11/05/18 12:00: PT 15.1 H, INR 1.29 11/05/18 12:00: Sodium 142, Potassium 3.6, BUN 7, Creatinine 0.55, Glucose 118 H , Magnesium 2.1, Total Bilirubin 0.6, AST 8 L, ALT 8 L, Alkaline Phosphatase 99 11/05/18 11:00: WBC 5.9, Hgb 11.9 L, Hct 35.8 L, Plt Count 248 Assessment & Plan - Problems (Diagnosis) (1) End stage COPD Current Visit: Yes Status: Acute (2) Diastolic heart failure Current Visit: Yes Status: Acute (3) Bilateral pleural effusion Current Visit: Yes Status: Acute (4) Hypoxemia Current Visit: Yes Status: Acute - Plan Plan: 1. Continue with albuterol and Atrovent nebs 2. Continue with IV steroids 3. Oxygen per protocol 4. Aggressively diurese 5. Palliative care 6. Arrange for halfway placement with hospice care 7. Continue with antibiotics 8. GI and DVT prophylaxis Discharge Plan: [facility] Plan to discharge in: Greater than 2 days - Advance Directives Does patient have a Living Will: No Does patient have a Durable POA for Healthcare: Yes - Code Status/Comfort Care Code Status Assessed: Yes Code Status: Full Code Critical Care: No Time Spent Managing PTS Care (In Minutes): 50
[2018-11-06] MEDS: predniSONE 10 MG TAB PO SCH (10:25)
--- NOTE | 2018-11-06 10:36 | EKG ---
Test Date: 2018-11-05 Test Time: 10:55:33 [place] Program Coordinator: MILLIE MEASUREMENT RESULTS: Intervals: Rate: 100 CA: 142 QRSD: 120 QT: 404 QTc: 521 Dorsey: P: 87 CA: 142 QRS: 67 T: 63 INTERPRETIVE STATEMENTS: Normal sinus rhythm Low voltage QRS Right bundle branch block Abnormal ECG Compared to ECG 02/03/2009 20:25:27 Low QRS voltage now present Right bundle-branch block now present Electronically Signed On 11-05-18 17:48:58 CDT by Ton Yeager
[2018-11-06] MEDS: ACETAMINOPHEN 500 MG TAB PO PRN (14:19)
--- NOTE | 2018-11-06 16:53 | P.PN ---
Subjective Date of Service: 11/06/18 Chief Complaint: Hypoxemia; generalized weakness; untreated medical problems Subjective: Tolerating diet, Improving, Working w/ PT, Doing well Review of Systems 10-point ROS is otherwise unremarkable Physical Examination - Vital Signs Temperature: 98.6 F Blood Pressure: 117/74 Pulse: 102 Respirations: 18 Pulse Ox (%): 89 - Physical Exam General: Alert, In no apparent distress, Demented HEENT: Atraumatic, PERRLA, EOMI Neck: Supple, JVD not distended Respiratory: Clear to auscultation bilaterally, Normal air movement Cardiovascular: Regular rate/rhythm, Normal S1 S2 Gastrointestinal: Normal bowel sounds, No tenderness Musculoskeletal: No tenderness Integumentary: No rashes Neurological: Normal speech, Normal tone, Normal affect Lymphatics: No axilla or inguinal lymphadenopathy - Studies Laboratory Data (last 24 hrs) 11/06/18 07:13: Sodium 144, Potassium 3.7, BUN 10, Creatinine 0.72, Glucose 210 H, Phosphorus 4.2, Magnesium 2.1, Total Bilirubin 0.4, AST 5 L, ALT 8 L, Alkaline Phosphatase 81 11/06/18 07:13: WBC 4.7 D, Hgb 9.6 L, Hct 28.6 L D, Plt Count 207 Medications List Reviewed: Yes Assessment And Plan - Current Problems (Diagnosis) (1) Fall Current Visit: Yes Status: Acute Plan: Status post fall in the house. -fall precautions given -PT OT consulted at this -patient will need placement on discharge Qualifiers: Encounter type: initial encounter Qualified Code(s): W19.XXXA - Unspecified fall, initial encounter (2) UTI (urinary tract infection) Current Visit: Yes Status: Acute Plan: UA with UTI -urine culture pending at this time -currently growing gram-negative rods -will continue with IV Rocephin Qualifiers: Urinary tract infection type: acute cystitis Hematuria presence: without hematuria Qualified Code(s): N30.00 - Acute cystitis without hematuria (3) Compression fracture Current Visit: Yes Status: Acute Plan: Lumbar and thoracic MRI consistent with sacral ala fracture, L1 50% compression FX -provide the TLSO brace at this time -will get vitamin-D, Colace, iron studies done -PT consulted for rehab (4) Osteomyelitis Current Visit: Yes Status: Acute Plan: Possible T12 osteomyelitis -family at this time wanting to do conservative management was discussed with other family members regarding biopsy. Will continue with IV antibiotics and told the decision from family members -id consulted at this time Qualifiers: Osteomyelitis type: other acute Osteomyelitis location: other site Qualified Code(s): M86.18 - Other acute osteomyelitis, other site (5) Diastolic heart failure Current Visit: Yes Status: Chronic Qualifiers: Heart failure chronicity: chronic Qualified Code(s): I50.32 - Chronic diastolic (congestive) heart failure (6) End stage COPD Current Visit: Yes Status: Chronic - Plan Pending clinical improvement at this time. Will follow up with urine culture here in the hospital. Will also follow up with family decision regarding biopsy of the lesion versus medical management. Will follow up with infectious disease recommendations regarding antibiotics. Will consult case management regarding placement once patient is medically cleared to be discharged Discharge Plan: Other Plan to discharge in: Greater than 2 days - Code Status/Comfort Care Code Status Assessed: Yes Critical Care: No
--- NOTE | 2018-11-06 21:19 | CON ---
History Of Present Illness: The patient is a 73-year-old female, I was consulted for osteomyelitis a nd urinary tract infection. The patient has been having falls in recent years. An MRI of lumbar spi ne done on November 05 showed the patient has abnormal signal intensity in right sacral ala extending in to the lateral aspect of the right S1, S2 bodies. Posttraumatic or insufficiency sacral fracture, melissa spected abnormal signal intensity pattern throughout the 30% compression T12 body with bone loss dos santos ges evident on CT image as detailed above. Posttraumatic or osteoporotic compression fracture, atypi eliseo presentation of metastatic disease and osteomyelitis would be consideration, Pott disease would b e a consideration if the patient is diabetic or otherwise immunocompromised. Biopsy of the bone lesi on may be needed to definitive diagnosis L1 50% compression fracture, the fracture is probable subacu te. There is some remnant edema signal within the body as well as enhancement differentiation. Diff erential consideration for the adjacent T12 abnormality, not current, suspected for T12-L1 diskitis, not currently suspected. No disk herniation is seen. Bilateral foraminal stenosis, L5-S1 due to spo ndylosis. The patient is in back brace at this time. Currently being treated with IV Rocephin. Den ies any headache, nausea, vomiting, chest pain, abdominal pain, constipation, or diarrhea. No fevers . Past Medical History: Diabetes mellitus, stroke, COPD, congestive heart failure, total knee replacem ent, arthroplasty. Social History: Tobacco use positive. Alcohol use negative. Family History: Noncontributory. Medications: Rocephin, see MARS for other medication. Allergies: IODINE. Review of Systems: A 10-point review was performed. Physical Examination: General: This is a 73-year-old female lying in bed, not in any acute cardiopulmonary distress. Vital Signs: Temperature 98.6, pulse 102, respirations 18, blood pressure 117/74. HEENT: Unremarkab le. Neck: Supple. Lungs: Basal crackles. Heart: S1, S2. Regular. Abdomen: Soft, nontender. Bowel sounds present. Back: Examination of the back shows the patient has sacrococcygeal DTI. Posterior thigh has a stage 3 wound with MRI showing possible diskitis, status post fall with L1 50% compression fracture and right sacral ala extending in S1, S2 bodies, posttraumatic insufficiency wit h sacral ala fracture suspected. Continue antibiotic in urinary tract infection secondary to gram-negative rods, most likely secondary to Escherichia coli or Pseudomonas. Continue antibiotic and supportive care for 4-6 weeks. We will follow the patient as needed. KAEL/XUAN Voice ID: [id number] Report ID: [id number]
[2018-11-07] MEDS: FUROSEMIDE 40 MG/4 ML VIAL IV SCH ×3 (00:16→16:45)
[2018-11-07] MEDS: ALBUTEROL 2.5 MG/3 ML NEB SOL NEB SCH ×5 (02:00→19:33)
[2018-11-07] MEDS: IPRATROPIUM BROM 0.5MG/2.5ML NEB SCH ×5 (02:00→19:33)
[2018-11-07] MEDS: METOPROLOL TAR 25 MG TAB PO SCH ×2 (05:19→17:23)
[2018-11-07 06:27] LABS: Absolute Lymphocytes (CBC) 1.2 K/uL (0.7-4.9); Absolute Monocytes 0.6 K/uL (0.1-1.3); Absolute Neutrophil 6.2 K/uL (1.8-8.0); Basophils % 0.1 % (0-1.3); Hematocrit 29.9 % (36.0-45.0); Lymphocytes % 15.4 % (15.3-44.8); MPV 8.7 fL (7.6-11.3); Monocytes % 7.2 % (3.3-12.3); RBC Red Blood Cell Count 3.06 M/uL (3.86-4.86)
[2018-11-07 06:33] LABS: Bilirubin Total 0.2 mg/dL (0.2-1.0); Magnesium 2.2 mg/dL (1.8-2.4); Phosphorus 2.8 mg/dL (2.5-4.9); Potassium 3.4 mmol/L (3.5-5.1); Protein, Total 5.3 g/dL (6.4-8.2)
[2018-11-07] MEDS: INSULIN -REGULAR HUMAN 50 UNIT/0.5 ML ML SQ SCH ×4 (07:30→21:00)
[2018-11-07] MEDS ORDERED: Meropenem 500 MG VIAL IV SCH (09:00)
[2018-11-07] MEDS: Meropenem 500 MG in NA CHLORIDE 0.9% 100 ML IV SCH ×2 (10:40→16:45)
[2018-11-07] MEDS: predniSONE 10 MG TAB PO SCH (10:41)
--- NOTE | 2018-11-07 13:00 | P.PN ---
Subjective Date of Service: 11/07/18 Chief Complaint: Hypoxemia; generalized weakness; untreated medical problems Subjective: No new changes, No C/O voiced, Tolerating diet Patient evaluated this morning and is doing better. Has moments of confusion from time to time per family. Patient alert and oriented to person, place upon our assessment. No acute delerium at that time. Patient was assessed by ID and was requested to be on antibiotics for 4-6 weeks for osteomyelitis amongst ESBL UTI and possible pneumonia. Patient will have PICC line placed and SW is assessing for LTAC facility. Otherwise patient will continue to be monitored closely over the weekend. <Jono Sanford - Last Filed: 11/07/18 12:53> Date of Service: 11/07/18 <Ye Hook - Last Filed: 11/07/18 14:38> Review of Systems General: Weakness Eyes: Unremarkable ENT: Unremarkable Respiratory: Unremarkable Cardiovascular: Unremarkable Gastrointestinal: Unremarkable Musculoskeletal: Back Pain, Leg Pain Integumentary: Unremarkable Neurological: Confusion Lymphatics: Unremarkable <Jono Sanford - Last Filed: 11/07/18 12:53> Physical Examination - Vital Signs Temperature: 97.7 F Blood Pressure: 138/63 Pulse: 77 Respirations: 18 Pulse Ox (%): 95 - Physical Exam General: Alert, In no apparent distress, Oriented x2, Cooperative HEENT: Normocephalic, PERRLA, Mucous membr. moist/pink Neck: Supple, JVD not distended, No Thyromegaly Respiratory: Clear to auscultation bilaterally, Normal air movement Cardiovascular: No edema, Normal pulses, Regular rate/rhythm, Normal S1 S2, No gallops, No rubs, No murmurs Capillary refill: <2 Seconds Gastrointestinal: Normal bowel sounds, Soft and benign, Non-distended, No tenderness, No masses, No rebound, No guarding Musculoskeletal: No clubbing, No swelling, No contractures, No erythema, No tenderness, No warmth Integumentary: No rashes, No breakdown, No significant lesion, No tenderness/ swelling, No erythema, No warmth, No cyanosis Neurological: Normal speech, Normal strength at 5/5 x4 extr, Normal tone, Sensation intact, Cranial nerves 3-12 intact, Normal reflexes 2+, Normal affect - Studies Microbiology Data (last 24 hrs): 11/05/18 13:50 Clean Catch Urine [place] Count - Final >100,000 CFU/ML. 11/05/18 13:50 Clean Catch Urine - Final Escherichia Coli Esbl Medications List Reviewed: Yes <Jono Sanford - Last Filed: 11/07/18 12:53> - Studies Microbiology Data (last 24 hrs): 11/05/18 13:50 Clean Catch Urine [place] Count - Final >100,000 CFU/ML. 11/05/18 13:50 Clean Catch Urine - Final Escherichia Coli Esbl <Ye Hook - Last Filed: 11/07/18 14:38> Assessment & Plan - Problems (Diagnosis) (1) Bilateral pleural effusion Current Visit: Yes Status: Acute (2) Compression fracture Current Visit: Yes Status: Acute (3) Fall Current Visit: Yes Status: Acute Qualifiers: Encounter type: initial encounter Qualified Code(s): W19.XXXA - Unspecified fall, initial encounter (4) Hypoxemia Current Visit: Yes Status: Acute (5) Osteomyelitis Current Visit: Yes Status: Acute Qualifiers: Osteomyelitis type: other acute Osteomyelitis location: other site Qualified Code(s): M86.18 - Other acute osteomyelitis, other site (6) UTI (urinary tract infection) Current Visit: Yes Status: Acute Qualifiers: Urinary tract infection type: acute cystitis Hematuria presence: without hematuria Qualified Code(s): N30.00 - Acute cystitis without hematuria (7) Diastolic heart failure Current Visit: Yes Status: Chronic Qualifiers: Heart failure chronicity: chronic Qualified Code(s): I50.32 - Chronic diastolic (congestive) heart failure (8) End stage COPD Current Visit: Yes Status: Chronic Discharge Plan: LTAC Plan to discharge in: Greater than 2 days - Code Status/Comfort Care Code Status Assessed: No <Jono Sanford - Last Filed: 11/07/18 12:53> Physician Review Additional Text: Patient seen and evaluate with HEATH Oh. Patient is stable. Continues to improve. MRI and lab findings discussed with patient and family. Infectious disease recommends IV antibiotics for 4-6 weeks. Will order PICC line. Family has agreed to LTAC. Will pursue LTAC for continued wound care and IV antibiotics. Dr. Stephen to take over care tomorrow. Time Spent Managing Pts Care (In Minutes): 55 <Ye Hook - Last Filed: 11/07/18 14:38>
[2018-11-07] MEDS: ACETAMINOPHEN 500 MG TAB PO PRN (13:18)
[2018-11-07] MEDS ORDERED: POTASSIUM 25 MEQ EFFERV TAB PO ONE (14:00)
--- NOTE | 2018-11-07 17:20 | PN ---
Subjective: Patient is lying in bed. Denies any headache, nausea, vomiting, chest pain, abdominal p ain, constipation, or diarrhea. Objective: Vital Signs: Temperature 97, pulse 77, respirations 18, blood pressure 138/68. Lungs: Basal crackles. Heart: S1, S2. Regular. Abdomen: Soft, nontender. Bowel sounds present. Extremities: No edema. Wounds noted. Laboratory Data: WBC 8, hemoglobin 10, platelets are 261. Assessment/plan: Pneumonitis, urinary tract infection, osteomyelitis of the lumbar spine. Continue DTI to the coccyx region, posterior thigh wounds stage III noted. Continue to give antibiotic. Tota l course of 6 weeks. Continue wound care. We will follow the patient as needed. NF/MODL Voice ID: [id number] Report ID: [id number]
[2018-11-07] MEDS ORDERED: LORazepam 2 MG/ML VIAL IV STA (19:43)
[2018-11-07] MEDS ORDERED: ZIPRASIDONE MESYLA 20 MG/VIAL IM STA (20:23)
[2018-11-07] MEDS ORDERED: WATER FOR INJ,STERILE 10 ML IM PRN (20:23)
[2018-11-07] MEDS: WATER FOR INJ,STERILE 10 ML IM PRN (20:38)
[2018-11-08] MEDS: Meropenem 500 MG in NA CHLORIDE 0.9% 100 ML IV SCH ×5 (00:26→16:40)
[2018-11-08] MEDS: FUROSEMIDE 40 MG/4 ML VIAL IV SCH ×3 (00:26→16:40)
[2018-11-08] MEDS: IPRATROPIUM BROM 0.5MG/2.5ML NEB SCH ×4 (00:47→13:37)
[2018-11-08] MEDS: ALBUTEROL 2.5 MG/3 ML NEB SOL NEB SCH ×4 (00:47→13:37)
[2018-11-08] MEDS: ACETAMINOPHEN 500 MG TAB PO PRN ×2 (03:38→10:53)
[2018-11-08] MEDS: METOPROLOL TAR 25 MG TAB PO SCH ×2 (06:30→18:00)
[2018-11-08 06:31] LABS: Absolute Lymphocytes (CBC) 1.4 K/uL (0.7-4.9); Absolute Monocytes 0.4 K/uL (0.1-1.3); Absolute Neutrophil 3.5 K/uL (1.8-8.0); Eosinophils % 0.3 % (0-4.4); Lymphocytes % 26.3 % (15.3-44.8); MPV 8.4 fL (7.6-11.3); Monocytes % 7.4 % (3.3-12.3); RBC Red Blood Cell Count 2.72 M/uL (3.86-4.86)
[2018-11-08 06:33] LABS: ALT/SGPT 7 U/L (12-78); AST/SGOT 6 U/L (15-37); Albumin 1.8 g/dL (3.4-5.0); Alkaline Phosphatase 67 U/L (45-117); BUN Blood Urea Nitrogen 13 mg/dL (7-18); Bicarbonate 36 mmol/L (21-32); Bilirubin Total 0.2 mg/dL (0.2-1.0); Glucose Level 98 mg/dL (74-106); Phosphorus 2.3 mg/dL (2.5-4.9); Potassium 3.6 mmol/L (3.5-5.1); Protein, Total 4.6 g/dL (6.4-8.2); Sodium Level 145 mmol/L (136-145)
[2018-11-08] MEDS: INSULIN -REGULAR HUMAN 50 UNIT/0.5 ML ML SQ SCH ×3 (07:30→16:30)
[2018-11-08] MEDS ORDERED: POTASSIUM CL SA 10 MEQ TAB PO ONE (09:00)
[2018-11-08] MEDS: predniSONE 10 MG TAB PO SCH (09:42)
--- NOTE | 2018-11-08 12:20 | RAD REPORT ---
EXAM DESCRIPTION: Chest Single View CLINICAL HISTORY: 73 years Female picc line placement COMPARISON: None TECHNIQUE: AP view of the chest was obtained. FINDINGS: Right peripheral catheter is present with the tip seen at the atrial caval junction. No pn eumothorax. Cardiac silhouette is enlarged. Central vessels are indistinct. Patient is rotated to the left. Airspace opacities lung lópez bilaterally left greater than right. Possible elevation left hemidiaph ragm. Suspected bilateral pleural effusions left greater than right. IMPRESSION: Satisfactory right peripheral catheter placement. Tip seen in the region of atrial caval junction. No pneumothorax. Enlarged heart with moderate to marked congestive heart failure. Bilateral infiltrates versus pulmona ry congestion left greater than right. Electronically signed by: Reba Kaur MD 11/07/2018 10:16 PM CDT Due to temporary technical issues with the PACS/Fluency reporting system, reports are being signed by the in house radiologist as a courtesy to ensure prompt reporting. The interpreting radiologist is f ully responsible for the content of the report.
--- NOTE | 2018-11-08 17:12 | DS ---
Date of Discharge: 11/08/2018 Wild Life Manager: Dr. Hope with Infectious Disease. Code status: Full Admitting Diagnoses: 1. End-stage chronic obstructive pulmonary disease. 2. Diastolic heart failure chronic. 3. Bilateral pleural effusions. 4. Hypoxemia. Discharge Diagnoses: 1. Bilateral pleural effusions. 2. Compression fracture of spine. 3. Status post fall, initial encounter. 4. Hypoxemia. 5. Osteomyelitis of lumbar spine. 6. Urinary tract infection, acute cystitis without hematuria. 7. Chronic diastolic heart failure. 8. End-stage chronic obstructive pulmonary disease. Hospital Course: The patient is a 73-year-old female, who has been declining any sort of intervention, who does not want any heroic measures, interventions such as biopsy or surgery, was brought in by her family for generalized weakness , hypoxemia. The family had been trying to get the patient to assisted living or chcf. She has not been going to her doctor either. Did not follow up when she had slurred speech and possible stroke symptoms 2 years ago. The patient comes in with bilateral pleural effusions, which may or may not be malignant, refusing treatment. Family was approached regarding hospice care by the admitting physician. The patient's further workup revealed that the patient has some compression fractures and also with possible osteomyelitis of the lumbar spine. The patient was started on broad-spectrum IV antibiotics. Infectious Disease Dr. Hope was consulted. Her urine culture did show ESBL producing E. coli, and patient was switched to meropenem. The patient and family do not want any biopsies, intervention, or surgeries, therefore, no transfer was initiated for neurosurgical evaluation regarding the osteomyelitis of the spine. The patient does have end-stage COPD, diastolic heart failure, has no intentions of undergoing any invasive procedures. Therefore, we would recommend hospice for this patient at this time. However, currently, the patient and family wish to treat the osteomyelitis and urinary tract infection. The patient was set up with [facility] and was accepted. The patient was then discharged to LTAC for 6 weeks of IV meropenem. Medications as per medication reconciliation list with accepting physician at LTAC when transferred. Follow up with ID, Dr. Hope in 1 week. Return to ER for worsening condition. Diet: Low-sodium, fluid-restricted diet. Activity: Fall precautions. Physical Examination: General: Awake, alert, oriented. Mild distress due to pain. CV: S1, S2. Respiratory: Diminished breath sounds. Abdomen: Soft, nontender, nondistended. Positive bowel sounds. Extremities: No clubbing, cyanosis, edema. Neurologic: Nonfocal. Total time spent discharging the patient was 37 minutes. JOAQUIM Voice ID: [id number] Report ID: [id number] MTDD
[2018-11-08 18:56] VITALS: O2SAT 96
[2018-11-08 20:36] VITALS: BP 138/62; TEMP 98.7
[2018-11-10 23:06] LABS: Vitamin D 1,25-Dihydroxy Total 17 pg/mL (18-72); Vitamin D,1,25-OH2, D2 <8 pg/mL
== END 2018-11-08 20:35 | DRG 551 ==
LOC: ER 10:09 → ERHOLD 18:36 → 4TH 20:16 → OBSVTOIN 11-06 12:14
PROVIDERS: ADMIT Family Medicine; ATTEND Family Medicine
PROC: 02HV33Z Insertion of Infusion Device into Superior Vena Cava, Percutaneous Approach (ICD-10-PCS; principal; 2018-11-07)
PROC: B548ZZA Ultrasonography of Superior Vena Cava, Guidance (ICD-10-PCS; 2018-11-07)
DX: S32.14XA Type 1 fracture of sacrum, initial encounter for closed fracture (principal); L89.43 Pressure ulcer of contiguous site of back, buttock and hip, stage 3; S32.018A Other fracture of first lumbar vertebra, initial encounter for closed fracture; J90 Pleural effusion, not elsewhere classified; N30.00 Acute cystitis without hematuria; M46.24 Osteomyelitis of vertebra, thoracic region; I50.32 Chronic diastolic (congestive) heart failure; J44.9 Chronic obstructive pulmonary disease, unspecified; F17.210 Nicotine dependence, cigarettes, uncomplicated; R09.02 Hypoxemia; Z91.81 History of falling; B96.20 Unspecified Escherichia coli [E. coli] as the cause of diseases classified elsewhere; Z16.12 Extended spectrum beta lactamase (ESBL) resistance; W01.0XXA Fall on same level from slipping, tripping and stumbling without subsequent striking against object, initial encounter; Y93.89 Activity, other specified; Y92.019 Unspecified place in single-family (private) house as the place of occurrence of the external cause
CPT/HCPCS: 36415; 51702; 70450; 71045; 71250; 72125; 72158; 72170; 73721; 74176; 80048; 80053; 80076; 81003; 81015; 82652; 82962; 83540; 83735; 83880; 84100; 84132; 84145; 84484; 85025; 85610; 86140; 87077; 87086; 87088; 87186; 93005; 93306; 94640; 94760; 97110; 97112; 97162; 97530; 97760; 99285; A9577; G0378; J0696; J1940; J2270; J2405; J2930; J3486; J7030; J7512; P9047

== ENCOUNTER 2020-05-20 09:48 | Inpatient (IN) | payer OTHER ==
[2020-05-20 10:51] LABS: Absolute Lymphocytes (CBC) 1.4 K/uL (0.7-4.9); Basophils % 0.3 % (0-1.3); Hematocrit 37.4 % (36.0-45.0); Lymphocytes % 18.3 % (15.3-44.8); MPV 9.2 fL (7.6-11.3); RBC Red Blood Cell Count 3.96 M/uL (3.86-4.86)
[2020-05-20 10:57] LABS: Protime INR 2.42
--- NOTE | 2020-05-20 11:10 | RAD REPORT ---
EXAM DESCRIPTION: Traci Single View05/20/2020 11:02 am CLINICAL HISTORY: Cough COMPARISON: 2019 FINDINGS: Moderate bilateral pulmonary opacities. Heart is mildly enlarged IMPRESSION: Moderate bilateral pulmonary opacities may represent pneumonia or pulmonary edema
[2020-05-20 11:12] LABS: ALT/SGPT 11 U/L (12-78); AST/SGOT 12 U/L (15-37); Albumin 2.7 g/dL (3.4-5.0); Alkaline Phosphatase 81 U/L (45-117); Amylase 54 U/L (25-115); BUN Blood Urea Nitrogen 25 mg/dL (7-18); Bicarbonate 27 mmol/L (21-32); Bilirubin Direct < 0.1 mg/dL (0-0.2); Bilirubin Total 0.4 mg/dL (0.2-1.0); CKMB Creatine Kinase MB 1.2 ng/mL (0.3-3.6); Creatine Phosphokinase 41 U/L (26-192); Glucose Level 85 mg/dL (74-106); Lipase 69 U/L (73-393); Potassium 4.4 mmol/L (3.5-5.1); Protein, Total 7.2 g/dL (6.4-8.2); Sodium Level 142 mmol/L (136-145); Troponin (Emerg Dept Use Only) < 0.02 ng/mL (0.0-0.045)
[2020-05-20 11:20] LABS: C-Reactive Protein 6.89 mg/L (<3.00); Ferritin 27.2 ng/mL (8-388)
--- NOTE | 2020-05-20 11:58 | RAD REPORT ---
EXAM DESCRIPTION: CT - Head Brain Wo Cont - 05/20/2020 11:41 am CLINICAL HISTORY: Slurred speech COMPARISON: 2019 TECHNIQUE: Computed axial tomography of the head was obtained. IV contrast was not requested. All CT scans are performed using dose optimization technique as appropriate and may include automated exposure control or mA/KV adjustment according to patient size. FINDINGS: An intracranial bleed is not seen . The ventricles are normal in caliber. No extra-axial fluid collection is noted. Mild to moderate low-density areas within periventricular, deep and subcortical white matter likely r epresent ischemic changes secondary to small vessel disease. Mild to moderate cerebral Chronic right maxillary, ethmoid sphenoid sinusitis IMPRESSION: No acute intracranial abnormality is seen. If patient's symptoms persist MRI of the bra in would be recommended.
[2020-05-20 12:08] LABS: Urine Bacteria 20-50 /HPF (<20); Urine Culture Reflex Order REFLEXED; Urine RBC <5 /HPF (NONE SEEN); Urine White Blood Cell Casts 0-5 /LPF (NONE SEEN)
[2020-05-20 12:12] LABS: Urine Blood NEGATIVE (NEG); Urine Glucose NEGATIVE (NEG); Urine Protein NEGATIVE (NEG)
[2020-05-20] MEDS ORDERED: CEFTRIAXONE/SWI 1gm 1 GM/10 ML SYR ONE (12:26)
--- NOTE | 2020-05-20 14:06 | ER ---
Nurse's Notes [facility] Name: Jeanette Pineda Age: 75 yrs Sex: Female : 1945 Arrival Date: 05/20/2020 Time: 09:54 Bed 14 Private MD: Diagnosis: Altered mental status, unspecified;Urinary tract infection, site not specified;Expressive language disorder Presentation: 05/20 09:55 Chief complaint: EMS states: were called out for AMS started last night, normally is iw A\T\OX4, now is A\T\OX2, has been on Levaquin and prednisone, was 88%on RA, up to 100% on 2 L NC. COVID-19 POSITIVE in February 2020. Coronavirus screen: cough unrelated to allergies, Client presents with at least one sign or symptom that may indicate coronavirus-19. Ebola Screen: Patient negative for fever greater than or equal to 101.5 degrees Fahrenheit, and additional compatible Ebola Virus Disease symptoms Patient denies exposure to infectious person. Patient denies travel to an Ebola-affected area in the 21 days before illness onset. No symptoms or risks identified at this time. Initial Sepsis Screen: Does the patient meet any 2 criteria? Altered Mental Status. HR > 90 bpm. Does the patient have a suspected source of infection? Yes: Productive cough/pneumonia. Risk Assessment: Do you want to hurt yourself or someone else? Patient reports no desire to harm self or others. Onset of symptoms was May 19, 2020. 09:55 Method Of Arrival: EMS: [facility] iw 09:55 Acuity: DAVE 3 iw Triage Assessment: 19:05 General: Appears in no apparent distress. Behavior is calm. wh 19:05 Pain: Denies pain. Neuro: Level of Consciousness is awake, alert, Oriented to person, wh place. Historical: - Allergies: 10:03 Iodine; iw - Home Meds: 10:03 prednisone 10 mg Oral tab once daily [Active]; iw 10:11 ipratropium-albuterol 0.5 mg-3 mg(2.5 mg base)/3 mL Inhl nebu 3 mL 4 times per day iw [Active]; prednisone 10 mg Oral tab once daily [Active]; Levaquin 500 mg Oral tab 1 tab once daily [Active]; melatonin 3 mg Oral tab 6 mg nightly [Active]; ProAir HFA 90 mcg/actuation inhalation HFAA 1 puff every 4 hours [Active]; tramadol 50 mg Oral tab three times a day [Active]; zinc sulfate 220 mg Oral tab daily [Active]; Iron CR 325 mg daily Oral [Active]; potassium chloride ER 20 meQ daily [Active]; Novolog 100 unit/mL Sub-Q soln [Active]; Pepcid 20 mg Oral tab 1 tab every 12 hours [Active]; metformin 500 mg Oral tab 1 tab 2 times per day [Active]; Lasix 40 mg Oral tab 1 tab 2 times per day [Active]; apixaban oral 5 mg BID oral [Active]; Metoprolol Tartrate 12.5 mg BID Oral [Active]; multivitamin oral tab daily [Active]; Lactobacillus acidophilus oral 1 cap BID oral [Active]; - PMHx: 10:03 CVA; iw 10:11 Acute and chronic respiratory failure w/ hypoxia; UTI; Chronic embolism and thrombosis; iw Dermatitis; Hypertension; Diabetes - IDDM; wedge compression fx of L1; - PSHx: 10:03 Knee surgery; iw 10:11 lumbosacral spine and pelvic fx; iw - Immunization history:: Adult Immunizations unknown. - Social history:: Smoking status: unknown. Screenin:12 Abuse screen: Denies threats or abuse. Denies injuries from another. Nutritional iw screening: No deficits noted. Tuberculosis screening: No symptoms or risk factors identified. 19:05 Fall Risk IV access (20 points). wh Assessment: 09:55 Reassessment: Code Sepsis called. sv 12:41 Reassessment: Patient appears in no apparent distress at this time. iw 13:06 Reassessment: Patient appears in no apparent distress at this time. pt will be iw admitted, daughter updated on POC, lunch tray ordered. 14:00 Reassessment: Patient appears in no apparent distress at this time. Patient and/or iw family updated on plan of care and expected duration. Pain level reassessed. pt more alert, able to answer questions, pt smiling, daughter at bedside, states she is acting more like her normal self. 15:14 Reassessment: Dr Holm called to get admission orders, stated he would be down here sv soon. Vital Signs: 09:55 BP 104 / 63; Pulse 106; Resp 20 S; Temp 99.5(TE); Pulse Ox 92% on R/A; iw 11:26 BP 103 / 58; Pulse 106; Resp 22 S; Pulse Ox 95% on 2 lpm NC; iw 13:06 BP 108 / 74; Pulse 105; Resp 20 S; Temp 99.0; Pulse Ox 96% on 2 lpm NC; iw 13:22 BP 96 / 73; Pulse 105; Resp 20; Pulse Ox 96% on 2 lpm NC; iw 15:09 BP 116 / 67; Pulse 104; Resp 18 S; Pulse Ox 100% on 2 lpm NC; iw 19:15 BP 112 / 70; Pulse 100; Resp 17; Pulse Ox 95% on 2 lpm NC; ED Course: 09:54 Patient arrived in ED. iw 09:58 Triage completed. iw 10:00 EKG done, by ED staff, reviewed by Buzz Schrader MD. mt 10:00 alarm security or surveillance monitor on. Pulse ox on. NIBP on. iw 10:10 Inserted saline lock: 22 gauge in left antecubital area, using aseptic technique. iw 10:12 Arm band placed on. iw 10:12 Patient has correct armband on for positive identification. Placed in gown. Bed in low iw position. Call light in reach. Side rails up X2. 10:15 Buzz Schrader MD is Attending Physician. kdr 10:46 Mary Bonilla, ARIELA is Primary Nurse. iw 11:03 Chest Single View XRAY In Process Unspecified. EDMS 11:41 CT Head Brain wo Cont In Process Unspecified. EDMS 14:04 Tigre Holm is Hospitalizing Provider. kdr 19:31 Patient admitted, IV remains in place. bb 19:42 No provider procedures requiring assistance completed. Patient admitted, IV remains in wh place. Administered Medications: 12:52 Drug: Rocephin - (cefTRIAXone) 1 grams Route: IVPB; Infused Over: 30 mins; Site: left iw antecubital; 19:46 Follow up: Response: No adverse reaction; IV Status: Completed infusion Outcome: 14:05 Decision to Hospitalize by Provider. kdr 19:30 Admitted to Tele accompanied by tech, via stretcher, room 411, with oxygen, with chart, bb Report called to Lorraine TITUS 19:30 Condition: stable 19:30 Instructed on the need for admit. 19:45 Patient left the ED. Signatures: Dispatcher [employer] Stephanie Rivera RN Buzz Lemons MD MD kdr Ballard, Brenda, RN RN bb Williams, Irene, RN RN iw Thompson, [facility] Marques Gregory Corrections: (The following items were deleted from the chart) 10:11 10:03 PMHx: Diabetes - NIDDM; iw iw 10:12 09:55 Chief complaint: EMS states: were called out for AMS started last night, normally iw is A\T\OX4, now is A\T\OX2, has been on Levaquin and prednisone, was 88%on RA, up to 100% on 2 L NC iw 10:13 09:55 Pulse 106bpm; Resp 20bpm; Spontaneous; Pulse Ox 92% RA; iw iw 10:47 09:55 BP 104 / 63; Pulse 106bpm; Resp 20bpm; Spontaneous; Pulse Ox 92% RA; iw iw
--- NOTE | 2020-05-20 14:06 | EDPHYS ---
Physician Documentation [facility] Name: Jeanette Pineda Age: 75 yrs Sex: Female : 1945 Arrival Date: 05/20/2020 Time: 09:54 Bed 14 Private MD: ED Physician Buzz Schrader HPI: 05/20 11:10 This 75 yrs old Female presents to ER via EMS with complaints of Altered kdr Mental Status. 11:10 The patient presents with confusion, decreased mental status, disorientation, to place, kdr to time, hallucinating - seeing rats and roaches coming out of TV. Onset: The symptoms/episode began/occurred last night. Possible causes: CVA or TIA, sepsis. Associated signs and symptoms: Pertinent positives: confusion. Current symptoms: In the emergency department the patient's symptoms are unchanged from the initial presentation. Patient's baseline: Neuro: alert and fully oriented, Motor: no deficits, Ambulation: walks with assist only. It is unknown whether or not the patient has had similar symptoms in the past. The patient has not recently seen a physician. Historical: - Allergies: 10:03 Iodine; iw - Home Meds: 10:03 prednisone 10 mg Oral tab once daily [Active]; iw 10:11 ipratropium-albuterol 0.5 mg-3 mg(2.5 mg base)/3 mL Inhl nebu 3 mL 4 times per day iw [Active]; prednisone 10 mg Oral tab once daily [Active]; Levaquin 500 mg Oral tab 1 tab once daily [Active]; melatonin 3 mg Oral tab 6 mg nightly [Active]; ProAir HFA 90 mcg/actuation inhalation HFAA 1 puff every 4 hours [Active]; tramadol 50 mg Oral tab three times a day [Active]; zinc sulfate 220 mg Oral tab daily [Active]; Iron CR 325 mg daily Oral [Active]; potassium chloride ER 20 meQ daily [Active]; Novolog 100 unit/mL Sub-Q soln [Active]; Pepcid 20 mg Oral tab 1 tab every 12 hours [Active]; metformin 500 mg Oral tab 1 tab 2 times per day [Active]; Lasix 40 mg Oral tab 1 tab 2 times per day [Active]; apixaban oral 5 mg BID oral [Active]; Metoprolol Tartrate 12.5 mg BID Oral [Active]; multivitamin oral tab daily [Active]; Lactobacillus acidophilus oral 1 cap BID oral [Active]; - PMHx: 10:03 CVA; iw 10:11 Acute and chronic respiratory failure w/ hypoxia; UTI; Chronic embolism and thrombosis; iw Dermatitis; Hypertension; Diabetes - IDDM; wedge compression fx of L1; - PSHx: 10:03 Knee surgery; iw 10:11 lumbosacral spine and pelvic fx; iw - Immunization history:: Adult Immunizations unknown. - Social history:: Smoking status: unknown. ROS: 11:10 Constitutional: Negative for fever, chills, and weight loss - from daughter - patinet kdr is unable to clearly answser questisons appropriately Eyes: Negative for injury, pain, redness, and discharge, Neck: Negative for injury, pain, and swelling, Cardiovascular: Negative for chest pain, palpitations, and edema. 11:10 Unable to obtain ROS due to patient's speech is incomprehensible, patient's inability to understand questions, Slow. Exam: 11:10 Constitutional: This is a well developed, well nourished patient who is awake, alert, kdr and in no acute distress. The patient is intermittently able o respond appreoaitely to questions but other times, she just nods her head Head/Face: Normocephalic, atraumatic. Eyes: Pupils equal round and reactive to light, extra-ocular motions intact. Lids and lashes normal. Conjunctiva and sclera are non-icteric and not injected. Cornea within normal limits. Periorbital areas with no swelling, redness, or edema. Neck: Trachea midline, no thyromegaly or masses palpated, and no cervical lymphadenopathy. Supple, full range of motion without nuchal rigidity, or vertebral point tenderness. No Meningismus. Chest/axilla: Normal chest wall appearance and motion. Nontender with no deformity. No lesions are appreciated. Abdomen/GI: Soft, non-tender, with normal bowel sounds. No distension or tympany. No guarding or rebound. No evidence of tenderness throughout. Back: No spinal tenderness. No costovertebral tenderness. Full range of motion. Skin: Warm, dry with normal turgor. Normal color with no rashes, no lesions, and no evidence of cellulitis. MS/ Extremity: Pulses equal, no cyanosis. Neurovascular intact. Full, normal range of motion. 11:10 Cardiovascular: Rate: tachycardic, Rhythm: regular, Pulses: no pulse deficits are appreciated. 11:10 ECG was reviewed by the Attending Physician. Vital Signs: 09:55 BP 104 / 63; Pulse 106; Resp 20 S; Temp 99.5(TE); Pulse Ox 92% on R/A; iw 11:26 BP 103 / 58; Pulse 106; Resp 22 S; Pulse Ox 95% on 2 lpm NC; iw 13:06 BP 108 / 74; Pulse 105; Resp 20 S; Temp 99.0; Pulse Ox 96% on 2 lpm NC; iw 13:22 BP 96 / 73; Pulse 105; Resp 20; Pulse Ox 96% on 2 lpm NC; iw 15:09 BP 116 / 67; Pulse 104; Resp 18 S; Pulse Ox 100% on 2 lpm NC; iw 19:15 BP 112 / 70; Pulse 100; Resp 17; Pulse Ox 95% on 2 lpm NC; MDM: 14:05 Patient medically screened. kdr 14:09 Data reviewed: vital signs, nurses notes, lab test result(s), radiologic studies. kdr Counseling: I had a detailed discussion with the patient and/or guardian regarding: the historical points, exam findings, and any diagnostic results supporting the discharge/admit diagnosis, lab results, radiology results, the need for further work-up and treatment in the hospital. 05/20 10:13 Order name: Amylase, Serum; Complete Time: 05/20 10:13 Order name: Basic Metabolic Panel; Complete Time: 05/20 10:13 Order name: Blood Culture Adult (2) 05/20 10:13 Order name: CBC with Diff; Complete Time: :05/20 10:13 Order name: Ckmb; Complete Time: 05/20 10:13 Order name: CPK; Complete Time: 05/20 10:13 Order name: Lactate; Complete Time: :05/20 10:13 Order name: LFT's; Complete Time: 05/20 10:13 Order name: Lipase; Complete Time: 05/20 10:13 Order name: Procalcitonin; Complete Time: 05/20 10:13 Order name: Protime (+inr); Complete Time: 11: 05/20 10:13 Order name: Ptt, Activated; Complete Time: 05/20 10:13 Order name: Troponin (emerg Dept Use Only); Complete Time: 05/20 10:13 Order name: Urine Microscopic Only; Complete Time: 14: 05/20 10:13 Order name: Chest Single View XRAY; Complete Time: 05/20 10:13 Order name: Accucheck; Complete Time: : 05/20 10:15 Order name: Flu; Complete Time: 05/20 10:16 Order name: C-Reactive Protein; Complete Time: 05/20 10:16 Order name: D-Dimer; Complete Time: 05/20 10:16 Order name: Ferritin; Complete Time: : 05/20 10:16 Order name: Strep; Complete Time: 05/20 10:16 Order name: EKG; Complete Time: 10:16 05/20 11:07 Order name: CT Head Brain wo Cont; Complete Time: 12: [facility] 05/20 11:14 Order name: Throat Culture [facility] 05/20 11:56 Order name: Urine Dipstick--Ancillary (enter results); Complete Time: 14:29 05/20 12:09 Order name: Urine Culture [facility] 05/20 12:45 Order name: SARS-COV-2 RT PCR [facility] 05/20 12:56 Order name: Diet Ada 2000 Steve; Complete Time: 12:57 05/20 10:13 Order name: Cardiac monitoring; Complete Time: 10:14 05/20 10:13 Order name: EKG - Nurse/Tech; Complete Time: 10:14 05/20 10:13 Order name: IV Saline Lock - Large Bore; Complete Time: 10:47 05/20 10:13 Order name: Labs collected and sent; Complete Time: 10:47 05/20 10:13 Order name: O2 Per Protocol; Complete Time: 10:14 05/20 10:13 Order name: O2 Sat Monitoring; Complete Time: 10:14 05/20 10:13 Order name: Urine Dipstick-Ancillary (obtain specimen); Complete Time: 11: 05/20 10:16 Order name: Droplet/Contact Precautions; Complete Time: 05/20 10:16 Order name: IV Start; Complete Time: : EC:10 Rate is 106 beats/min. Rhythm is regular, Sinus tachycardia with No ectopy, Right kdr bundle branch block. QRS Ola is Normal. Right axis deviation noted. GA interval is normal. QRS interval is normal. Clinical impression: NSR w/ Non-specific ST/T Changes and Sinus tachycardia. Administered Medications: 12:52 Drug: Rocephin - (cefTRIAXone) 1 grams Route: IVPB; Infused Over: 30 mins; Site: left iw antecubital; 19:46 Follow up: Response: No adverse reaction; IV Status: Completed infusion Disposition: 05/20/20 14:05 Hospitalization ordered by Tigre Holm for Observation. Preliminary diagnosis are Altered mental status, unspecified, Urinary tract infection, site not specified, Expressive language disorder. - Bed requested for Telemetry/MedSurg (Inpatient). - Status is Observation. - Condition is Fair. - Problem is new. - Symptoms are unchanged. Signatures: Dispatcher [employer] EDNE Stephanie Souza RN RN Buzz Schrader MD MD [facility] Mary Bonilla RN RN Marques Gregory Corrections: (The following items were deleted from the chart) 10:11 10:03 PMHx: Diabetes - NIDDM; [facility] 12:45 10:16 CORONAVIRUS+MR.LAB.BRZ ordered. EDNE EDNE 17:24 14:05 Hospitalization Ordered by Tigre Holm for Observation. Preliminary diagnosis iw is Altered mental status, unspecified; Urinary tract infection, site not specified; Expressive language disorder. Bed requested for Telemetry/MedSurg (observation). Status is Observation. Condition is Fair. Problem is new. Symptoms are unchanged. kdr 18:13 17:24 05/20/2020 14:05 Hospitalization Ordered by Tigre Holm for Observation. sv Preliminary diagnosis is Altered mental status, unspecified; Urinary tract infection, site not specified; Expressive language disorder. Bed requested for [facility] ER HOLD. Status is Observation. Condition is Fair. Problem is new. Symptoms are unchanged. iw 19:45 18:13 05/20/2020 14:05 Hospitalization Ordered by Tigre Holm for Observation. wh Preliminary diagnosis is Altered mental status, unspecified; Urinary tract infection, site not specified; Expressive language disorder. Bed requested for Telemetry/MedSurg (Inpatient). Status is Observation. Condition is Fair. Problem is new. Symptoms are unchanged. sv
--- NOTE | 2020-05-20 16:26 | P.HP ---
Certification for Inpatient Patient admitted to: Inpatient With expected LOS: >2 Midnights Practitioner: I am a practitioner with admitting privileges, knowledge of patient current condition, hospital course, and medical plan of care. Services: Services provided to patient in accordance with Admission requirements found in Title 42 Section 412.3 of the Code of Federal Regulations Patient History Date of Service: 05/20/20 Reason for admission: Confusion and hallucination History of Present Illness: 75-year-old woman with a history of COPD and congestive heart failure [facility] because patient was hallucinating and seeing bugs which is crawling out of the TV and on her skin. She was also noted to be confused. No report of fever or nausea or vomiting or diarrhea. Workup in the emergency department revealed UA with evidence urinary tract infection. Chest x-ray shows bilateral infiltrates, COVID 19 is negative. She also has acute renal failure with serum creatinine significant elevated above baseline. Patient was confused during my examination. Admit her daughter by her bedside who gave the history. She is admitted for further management. Allergies iodine Allergy (Verified 11/05/18 14:36) Rash Home Medications: Furosemide [Lasix] 40 mg PO BIDL #60 tab 11/08/18 Meropenem [Merrem 500 MG/100 ML NS IVPB] 500 mg IV Q8H #1 bag 11/08/18 Metoprolol Tartrate [Lopressor*] 12.5 mg PO BID 6AM 6PM tab 11/08/18 predniSONE [Deltasone*] 10 mg PO DAILY #0 tab 11/08/18 - Past Medical/Surgical History Diabetic: No -: Type 2 diabetes -: CVA -: COPD -: CHF -: Total knee arthroplasty - Family History Family History: Reviewed- Non-Contributory - Social History Alcohol use: No CD- Drugs: No Caffeine use: No Review of Systems is unable to be obtained (Due to confusion) Physical Examination - Physical Exam General: Confused, Other (Frail) HEENT: Mucous membr. moist/pink Neck: Supple Respiratory: Normal air movement, Crackles/rales (Bilateral) Cardiovascular: No edema, Regular rate/rhythm, Normal S1 S2 Gastrointestinal: Normal bowel sounds, Soft and benign, Non-distended, No tenderness Musculoskeletal: No swelling Integumentary: Other (Small (1cm) eschar on the right heel) Neurological: Normal strength at 5/5 x4 extr - Studies Laboratory Data (last 24 hrs) 05/20/20 10:10: PT 28.1 H, INR 2.42, APTT 39.1 H 05/20/20 10:10: WBC 7.9, Hgb 12.5, Hct 37.4, Plt Count 284 05/20/20 10:10: Sodium 142, Potassium 4.4, BUN 25 H, Creatinine 2.34 H, Glucose 85, Total Bilirubin 0.4, AST 12 L, ALT 11 L, Alkaline Phosphatase 81, Amylase 54, Lipase 69 L Microbiology Data (last 24 hrs): 05/20/20 10:15 Throat Group A Streptococcus Rapid Screen - Final 05/20/20 10:15 Nasopharnyx Influenza Type A Antigen Screen - Final 05/20/20 10:15 Nasopharnyx Influenza Type B Antigen Screen - Final Assessment and Plan - Problems (Diagnosis) (1) Chronic diastolic heart failure Current Visit: Yes Status: Acute (2) Metabolic encephalopathy Current Visit: Yes Status: Acute (3) UTI (urinary tract infection) Current Visit: No Status: Acute Qualifiers: Urinary tract infection type: acute cystitis Hematuria presence: without hematuria Qualified Code(s): N30.00 - Acute cystitis without hematuria (4) End stage COPD Current Visit: No Status: Chronic (5) Acute renal failure Current Visit: Yes Status: Acute (6) Healthcare-associated pneumonia Current Visit: Yes Status: Acute - Plan Admit to the medical floor. Start IV cefepime and vancomycin to cover UTI and hospital-acquired pneumonia. Follow urine culture and blood cultures Hydrate with IV normal saline. Hold all diuretics. Haldol p.r.n. for agitation and hallucinations Bronchodilators for COPD Supplemental oxygen as needed. - Advance Directives Does patient have a Living Will: No Does patient have a Durable POA for Healthcare: Yes
[2020-05-20] MEDS ORDERED: ACETAMINOPHEN 500 MG TAB PO PRN (17:03)
[2020-05-20] MEDS ORDERED: VANCOMYCIN 1 GM in NA CHLORIDE 0.9% 250 ML IVPB SCH (17:03)
[2020-05-20] MEDS: NA CHLORIDE 0.9% 1,000 ML IV SCH (17:03)
[2020-05-20] MEDS: CEFEPIME/SWI 1gm 10 ML IVP SCH (18:00)
[2020-05-20] MEDS ORDERED: VANCOMYCIN 1.75 GM in NA CHLORIDE 0.9% 500 ML IVPB ONE (18:00)
[2020-05-20] MEDS: ENOXAPARIN 30 MG/0.3 ML SQ SCH (18:00)
[2020-05-20] MEDS ORDERED: NA CHLORIDE 0.9% 1,000 ML ONE (18:36)
[2020-05-20] MEDS ORDERED: ENOXAPARIN 30 MG/0.3 ML SQ ONE (18:36)
[2020-05-20] MEDS ORDERED: CEFEPIME 1 GM/VIAL IV SCH (21:00)
[2020-05-20] MEDS: IPRATROPIUM BROM 0.5MG/2.5ML NEB SCH (21:55)
[2020-05-20] MEDS: ALBUTEROL 2.5 MG/3 ML NEB SOL NEB SCH (21:55)
[2020-05-20] MEDS: METOPROLOL TAR 25 MG TAB PO SCH (23:10)
[2020-05-21] MEDS: IPRATROPIUM BROM 0.5MG/2.5ML NEB SCH ×4 (02:45→19:40)
[2020-05-21] MEDS: ALBUTEROL 2.5 MG/3 ML NEB SOL NEB SCH ×4 (02:45→19:40)
[2020-05-21] MEDS: NA CHLORIDE 0.9% 1,000 ML IV SCH ×5 (03:03→22:54)
[2020-05-21 04:08] VITALS: BMI 24.0
[2020-05-21 06:50] LABS: Absolute Lymphocytes (CBC) 1.8 K/uL (0.7-4.9); Basophils % 0.7 % (0-1.3); Hematocrit 34.2 % (36.0-45.0); Lymphocytes % 21.7 % (15.3-44.8); MPV 9.2 fL (7.6-11.3); RBC Red Blood Cell Count 3.59 M/uL (3.86-4.86)
[2020-05-21 06:57] LABS: Potassium 3.8 mmol/L (3.5-5.1)
[2020-05-21] MEDS: ENOXAPARIN 30 MG/0.3 ML SQ SCH (08:31)
[2020-05-21] MEDS: METOPROLOL TAR 25 MG TAB PO SCH ×2 (08:31→22:53)
[2020-05-21] MEDS ORDERED: POTASSIUM CL SA 10 MEQ TAB PO ONE (09:00)
[2020-05-21] MEDS: CEFEPIME/SWI 1gm 10 ML IVP SCH (10:20)
--- NOTE | 2020-05-21 12:26 | EKG ---
Test Date: 2020-05-20 Test Time: 09:57:39 Billing Services Manager: OSMEL MEASUREMENT RESULTS: Intervals: Rate: 106 NC: 144 QRSD: 114 QT: 382 QTc: 507 [place]: P: 47 NC: 144 QRS: 66 T: 3 INTERPRETIVE STATEMENTS: Sinus tachycardia Right bundle branch block Abnormal ECG Compared to ECG 11/05/2018 10:55:33 Sinus rhythm no longer present Electronically Signed On 05-21-20 12:24:39 CDT by Vishnu Graham
--- NOTE | 2020-05-21 13:48 | P.PN ---
Subjective Date of Service: 05/21/20 Chief Complaint: Confusion and hallucination Patient remained confused but more interactive today. No issues overnight. She is not agitated. Physical Examination - Vital Signs Temperature: 98.2 F Blood Pressure: 139/68 Pulse: 95 Respirations: 20 Pulse Ox (%): 95 - Physical Exam General: In no apparent distress, Confused Respiratory: Normal air movement, Crackles/rales (Caused dry crackles- bilateral.) Cardiovascular: No edema, Regular rate/rhythm, Normal S1 S2 Gastrointestinal: Normal bowel sounds, Soft and benign, No tenderness Musculoskeletal: No swelling, No erythema Neurological: Normal strength at 5/5 x4 extr - Studies Microbiology Data (last 24 hrs): 05/20/20 10:15 Throat Group A Streptococcus Rapid Screen - Final 05/20/20 10:15 Nasopharnyx Influenza Type A Antigen Screen - Final 05/20/20 10:15 Nasopharnyx Influenza Type B Antigen Screen - Final Assessment And Plan - Current Problems (Diagnosis) (1) Metabolic encephalopathy Current Visit: Yes Status: Acute (2) UTI (urinary tract infection) Current Visit: No Status: Acute Qualifiers: Urinary tract infection type: acute cystitis Hematuria presence: without hematuria Qualified Code(s): N30.00 - Acute cystitis without hematuria (3) Acute renal failure Current Visit: Yes Status: Acute (4) Healthcare-associated pneumonia Current Visit: Yes Status: Acute (5) Chronic diastolic heart failure Current Visit: Yes Status: Acute (6) End stage COPD Current Visit: No Status: Chronic - Plan Continue IV cefepime and vancomycin to cover UTI and hospital-acquired pneumon ia. Blood cultures: no growth to date. Urine culture: No growth. Serum creatinine is improving with IV hydration. Continue IV normal saline. Hold all diuretics. Monitor renal function. Haldol p.r.n. for agitation and hallucinations Bronchodilators for COPD. Supplemental oxygen as needed.
[2020-05-21] MEDS ORDERED: TRAMADOL HCL 50 MG TAB PO PRN (13:53)
[2020-05-21] MEDS ORDERED: LORazepam 2 MG/ML VIAL IV ONE (19:13)
[2020-05-21] MEDS ORDERED: METOPROLOL TAR 25 MG TAB PO SCH (21:00)
[2020-05-21] MEDS ORDERED: FAMOTIDINE 20 MG TAB PO SCH (21:00)
[2020-05-21] MEDS: BIFIDO LONGUM PO SCH (21:00)
[2020-05-21] MEDS: ACIDOPHILUS PO SCH (21:00)
[2020-05-21] MEDS: APIXABAN 5 MG TABLET PO SCH (22:52)
[2020-05-21] MEDS: MELATONIN 3 MG TABLET PO SCH (22:53)
[2020-05-22] MEDS: ALBUTEROL 2.5 MG/3 ML NEB SOL NEB SCH ×4 (01:20→20:35)
[2020-05-22] MEDS: IPRATROPIUM BROM 0.5MG/2.5ML NEB SCH ×4 (01:20→20:35)
[2020-05-22] MEDS: LORazepam 2 MG/ML VIAL IV PRN ×3 (01:53→06:10)
[2020-05-22 06:35] LABS: Absolute Lymphocytes (CBC) 1.5 K/uL (0.7-4.9); Basophils % 0.5 % (0-1.3); Hematocrit 33.7 % (36.0-45.0); Lymphocytes % 21.4 % (15.3-44.8); MPV 9.2 fL (7.6-11.3); RBC Red Blood Cell Count 3.51 M/uL (3.86-4.86)
[2020-05-22] MEDS: ENOXAPARIN 30 MG/0.3 ML SQ SCH (09:00)
[2020-05-22] MEDS: BIFIDO LONGUM PO SCH (09:00)
[2020-05-22] MEDS: ACIDOPHILUS PO SCH (09:00)
[2020-05-22] MEDS: ZINC SULFATE 220 MG CAP PO SCH (09:16)
[2020-05-22] MEDS: FERROUS SULFATE 325 MG TAB PO SCH (09:16)
[2020-05-22] MEDS: METOPROLOL TAR 25 MG TAB PO SCH ×2 (09:17→20:17)
[2020-05-22] MEDS: APIXABAN 5 MG TABLET PO SCH ×2 (09:17→20:17)
[2020-05-22] MEDS: FAMOTIDINE 20 MG TAB PO SCH (09:18)
[2020-05-22] MEDS: NA CHLORIDE 0.9% 1,000 ML IV SCH ×2 (10:35→20:17)
--- NOTE | 2020-05-22 12:03 | P.PN ---
Subjective Date of Service: 05/22/20 Chief Complaint: Confusion and hallucination Patient remain confused. She had urinary retention yesterday and was straight cath. About 500 mL of urine drained out. Patient has been voiding freely is since then. She was given a dose of Ativan last night for agitation. Physical Examination - Vital Signs Temperature: 97.9 F Blood Pressure: 133/71 Pulse: 85 Respirations: 18 Pulse Ox (%): 96 - Physical Exam General: Confused Neck: Supple Respiratory: Clear to auscultation bilaterally, Normal air movement Cardiovascular: No edema, Regular rate/rhythm, Normal S1 S2 Gastrointestinal: Normal bowel sounds, Soft and benign, Non-distended, No tenderness Musculoskeletal: No swelling, No erythema Integumentary: No rashes Neurological: Other (Nonfocal) - Studies Microbiology Data (last 24 hrs): 05/20/20 10:15 Throat Culture & Sensitivity - Final NORMAL UPPER RESPIRATORY ESTIVEN GROWN. 05/20/20 11:29 Clean Catch Urine [place] Count - Final No growth. 05/20/20 11:29 Clean Catch Urine - Final No growth. Assessment And Plan - Current Problems (Diagnosis) (1) Metabolic encephalopathy Current Visit: Yes Status: Acute (2) UTI (urinary tract infection) Current Visit: No Status: Acute Qualifiers: Urinary tract infection type: acute cystitis Hematuria presence: without hematuria Qualified Code(s): N30.00 - Acute cystitis without hematuria (3) Acute renal failure Current Visit: Yes Status: Acute (4) Healthcare-associated pneumonia Current Visit: Yes Status: Acute (5) Chronic diastolic heart failure Current Visit: Yes Status: Acute (6) End stage COPD Current Visit: No Status: Chronic - Plan Continue IV cefepime and vancomycin to cover UTI and hospital-acquired pneumonia. Blood cultures: no growth to date. Urine culture: No growth. Serum creatinine continue to improve with IV hydration. Diuretics are on hold. Monitor renal function. Haldol p.r.n. for agitation and hallucinations Bronchodilators for COPD. Supplemental oxygen as needed.
[2020-05-22] MEDS: CEFEPIME/SWI 1gm 10 ML IVP SCH (15:08)
[2020-05-22] MEDS: HALOPERIDOL LACT 5 MG/ML INJ IV PRN ×2 (16:48→20:49)
[2020-05-22] MEDS ORDERED: VANCOMYCIN 1.25 GM in NA CHLORIDE 0.9% 250 ML IVPB SCH (18:00)
[2020-05-22] MEDS: LACTOBACILLUS/ACIDOPHILUS TAB PO SCH (20:17)
[2020-05-22] MEDS: MELATONIN 3 MG TABLET PO SCH (20:17)
[2020-05-23] MEDS: ALBUTEROL 2.5 MG/3 ML NEB SOL NEB SCH ×3 (03:15→13:18)
[2020-05-23] MEDS: IPRATROPIUM BROM 0.5MG/2.5ML NEB SCH ×3 (03:15→13:18)
[2020-05-23 04:26] LABS: Albumin 1.9 g/dL (3.4-5.0); Phosphorus 3.1 mg/dL (2.5-4.9)
[2020-05-23] MEDS: NA CHLORIDE 0.9% 1,000 ML IV SCH (05:31)
[2020-05-23] MEDS ORDERED: NA CHLORIDE 0.9% 1,000 ML IV SCH (07:55)
[2020-05-23] MEDS: LACTOBACILLUS/ACIDOPHILUS TAB PO SCH (08:29)
[2020-05-23] MEDS: METOPROLOL TAR 25 MG TAB PO SCH (08:29)
[2020-05-23] MEDS: FAMOTIDINE 20 MG TAB PO SCH (08:29)
[2020-05-23] MEDS: APIXABAN 5 MG TABLET PO SCH (08:29)
[2020-05-23] MEDS: ZINC SULFATE 220 MG CAP PO SCH (08:29)
[2020-05-23] MEDS: FERROUS SULFATE 325 MG TAB PO SCH (08:30)
[2020-05-23] MEDS: CEFEPIME/SWI 1gm 10 ML IVP SCH (08:31)
[2020-05-23 08:52] VITALS: O2SAT 96
[2020-05-23] MEDS: ENOXAPARIN 30 MG/0.3 ML SQ SCH (09:00)
--- NOTE | 2020-05-23 10:47 | P.DS ---
Admission Date: 05/20/20 Discharge Date: 05/23/20 Disposition: TRANSFER TO LONGTERM Discharge Condition: FAIR Reason for Admission: Confusion and hallucination - Problems (1) Metabolic encephalopathy Current Visit: Yes Status: Acute (2) UTI (urinary tract infection) Current Visit: No Status: Acute Qualifiers: Urinary tract infection type: acute cystitis Hematuria presence: without hematuria Qualified Code(s): N30.00 - Acute cystitis without hematuria (3) Acute renal failure Current Visit: Yes Status: Acute (4) Healthcare-associated pneumonia Current Visit: Yes Status: Acute (5) Chronic diastolic heart failure Current Visit: Yes Status: Acute (6) End stage COPD Current Visit: No Status: Chronic Brief History of Present Illness: 75-year-old woman with a history of COPD and congestive heart failure was brought from the senior living to the emergency department because patient was hallucinating and seeing bugs which is crawling out of the TV and on her skin. She was also noted to be confused. No report of fever or nausea or vomiting or diarrhea. Workup in the emergency department revealed UA with evidence urinary tract infection. Chest x-ray shows bilateral infiltrates, COVID 19 is negative. She also has acute renal failure with serum creatinine significant elevated above baseline. Patient was confused during my examination. She was admitted for further management. Hospital Course: Patient admitted to the medical floor and treated with IV antibiotics for UTI and possible health care associated pneumonia. Noted patient was recently diagnosed with COVID 19 pneumonia and the chest x-ray finding could be remnant of the COVID infection. She was afebrile during the hospital stay. UA suggested the presence of UTI. Urine culture yielded no growth. Blood cultures: no growth. Patient was confused during the initial hospital stay better confusion got better with treatment. She is currently alert, not confused. The hallucination has resolved. Patient is discharged back to the senior living with broad-spectrum antibiotics to continue treatment for possible UTI. Vital Signs/Physical Exam: Temp Pulse Resp BP Pulse Ox 98.2 F 89 16 141/71 H 95 05/23/20 04:00 05/23/20 08:29 05/23/20 04:00 05/23/20 08:29 05/23/20 04:00 General: In no apparent distress, Oriented x2 Respiratory: Crackles/rales (Bilateral dry crackles-both lungs.) Cardiovascular: No edema, Regular rate/rhythm, Normal S1 S2 Gastrointestinal: Normal bowel sounds, Soft and benign, Non-distended, No tenderness Musculoskeletal: No swelling, No erythema Neurological: Normal speech, Normal strength at 5/5 x4 extr Laboratory Data at Discharge: WBC 6.8 K/uL (4.3-10.9) D 05/22/20 05:45 Hgb 10.9 g/dL (12.0-15.0) L 05/22/20 05:45 Hct 33.7 % (36.0-45.0) L 05/22/20 05:45 Plt Count 207 K/uL (152-406) 05/22/20 05:45 PT 28.1 SECONDS (9.5-12.5) H 05/20/20 10:10 INR 2.42 05/20/20 10:10 APTT 39.1 SECONDS (24.3-36.9) H 05/20/20 10:10 Sodium 147 mmol/L (136-145) H 05/23/20 03:18 Potassium 4.0 mmol/L (3.5-5.1) 05/23/20 03:18 BUN 11 mg/dL (7-18) 05/23/20 03:18 Creatinine 1.23 mg/dL (0.55-1.3) 05/23/20 03:18 Glucose 98 mg/dL (74-106) 05/23/20 03:18 Phosphorus 3.1 mg/dL (2.5-4.9) 05/23/20 03:18 Total Bilirubin 0.4 mg/dL (0.2-1.0) 05/20/20 10:10 AST 12 U/L (15-37) L 05/20/20 10:10 ALT 11 U/L (12-78) L 05/20/20 10:10 Alkaline Phosphatase 81 U/L (45-117) 05/20/20 10:10 Amylase 54 U/L (25-115) 05/20/20 10:10 Lipase 69 U/L (73-393) L 05/20/20 10:10 Home Medications: Acetaminophen [Tylenol] 650 mg PO Q6H PRN 05/21/20 Acidophilus/Bifido Long[place] [Lactobacillus Capsule] 1 cap PO BID 05/21/20 Albuterol Sulfate [Albuterol Sulfate 0.083% Neb Soln] 1 inh IH Q6H PRN 05/21/20 Albuterol Sulfate [Proair Respiclick] 1 inh IH Q4H PRN 05/21/20 Apixaban [Eliquis] 5 mg PO BID 05/21/20 Famotidine [Pepcid*] 20 mg PO BID 05/21/20 Ferrous Sulfate [Iron] 325 mg PO DAILY 05/21/20 Insulin Aspart [Novolog] See Protocol SQ ACHS 05/21/20 Ipratropium [place] [Atrovent Hfa] 2 puff IH Q4H PRN 05/21/20 Ipratropium/Albuterol Sulfate [Iprat-Albut 0.5-3(2.5) mg/3 ml] 1 inh IH Q6H PRN 05/21/20 Melatonin [Melatonin*] 6 mg PO BEDTIME 05/21/20 Metformin HCl [Glucophage*] 500 mg PO BID 05/21/20 Metoprolol Tartrate [Lopressor*] 12.5 mg PO BID 05/21/20 Multivitamin 1 tab PO DAILY 05/21/20 Ondansetron [Zofran (Odt)*] 4 mg PO Q8H PRN 05/21/20 Potassium Chloride [Klor-Con] 20 meq PO DAILY 05/21/20 Tramadol HCl [Ultram] 50 mg PO TID PRN 05/21/20 Zinc Sulfate [Zinc Sulfate*] 1 cap PO DAILY 05/21/20 Cefdinir [Omnicef] 300 mg PO BID #10 capsule 05/23/20 New Medications: Cefdinir [Omnicef] 300 mg PO BID #10 capsule Diet: ADA Activity: Fall precautions Time spent managing pt's care (in minutes): 33
[2020-05-23 13:46] VITALS: BP 124/63; TEMP 97.3
== END 2020-05-23 15:43 | DRG 193 ==
LOC: ER 09:48 → ERHOLD 16:10 → 4TH 19:30
PROVIDERS: ADMIT Internal Medicine; ATTEND Internal Medicine
DX: J12.89 Other viral pneumonia (principal); I50.33 Acute on chronic diastolic (congestive) heart failure; G93.41 Metabolic encephalopathy; N17.9 Acute kidney failure, unspecified; N30.00 Acute cystitis without hematuria; J44.0 Chronic obstructive pulmonary disease with (acute) lower respiratory infection; I11.0 Hypertensive heart disease with heart failure; E11.9 Type 2 diabetes mellitus without complications; R33.9 Retention of urine, unspecified; R44.1 Visual hallucinations; Z79.52 Long term (current) use of systemic steroids; Z79.891 Long term (current) use of opiate analgesic; Z79.899 Other long term (current) drug therapy; Z79.84 Long term (current) use of oral hypoglycemic drugs; Z86.73 Personal history of transient ischemic attack (TIA), and cerebral infarction without residual deficits; Z91.048 Other nonmedicinal substance allergy status; Z20.828 Contact with and (suspected) exposure to other viral communicable diseases
CPT/HCPCS: 36415; 70450; 71045; 80048; 80069; 80076; 80202; 81003; 81015; 82150; 82550; 82553; 82728; 82947; 83605; 83690; 84145; 84484; 85025; 85379; 85610; 85730; 86140; 87040; 87070; 87081; 87086; 87088; 87804; 93005; 94640; 96365; 96366; 99285; J0692; J0696; J1630; J1650; J3370; J7030; J7040; J7050; U0003

== ENCOUNTER 2020-10-01 17:01 | Emergency (ER) | payer OTHER ==
--- NOTE | 2020-10-01 18:01 | RAD REPORT ---
EXAM DESCRIPTION: RAD - Chest Single View - 10/01/2020 5:35 pm CLINICAL HISTORY: altered mental status COMPARISON: April 2020, October 2018 TECHNIQUE: AP portable chest image was obtained 10/01/2020 5:35 pm . FINDINGS: Lung volumes are low. Diffuse interstitial opacification is present. Scattered alveolar op acities are present more prominent in the lower lateral left lung field. Lung parenchymal pattern is less prominent than seen on the April 2020 imaging. Heart and vasculature are normal. No pneumothorax or large pleural effusion. No acute bony abnormali ty seen. No acute aortic findings suspected. IMPRESSION: Interstitial and alveolar opacification present less prominent than seen on the last [address] film of April 2020. Pneumonia and pulmonary edema can have this appearance. Given the current clinical environment, a COV ID-19 pneumonia cannot be excluded.
--- NOTE | 2020-10-01 18:02 | RAD REPORT ---
EXAM DESCRIPTION: CT - Head Brain Wo Cont - 10/01/2020 5:42 pm CLINICAL HISTORY: MENTAL STATUS CHANGE COMPARISON: Head Brain Wo Cont dated 05/20/2020 TECHNIQUE: Axial 5 mm thick images of the head were obtained without IV contrast. All CT scans are performed using dose optimization technique as appropriate and may include automated exposure control or mA/KV adjustment according to patient size. FINDINGS: No intracranial hemorrhage, mass, edema or shift of mid-line structures. No acute infarcti on changes seen. No cortical edema or sulcal effacement. Moderate atrophy and moderate chronic ischem ic changes are present. Ventricles are in proportion to volume loss. Dense arterial tree calcificatio ns are present. The intracranial findings are similar to comparison. Mastoid air cells are clear. Chronic sphenoid and right maxillary sinusitis changes are present simil ar to comparison. No acute bony findings. IMPRESSION: Negative non-contrast CT head examination for acute intracranial finding. Moderate severity atrophy and moderate severity chronic ischemic changes are present not substantiall y different from April 2020. Chronic ischemic changes can mask nonhemorrhagic acute infarction. MR brain followup can be obtained if there is ongoing concern for acute ischemia. Chronic sinusitis similar to comparison.
[2020-10-01 19:02] LABS: Absolute Lymphocytes (CBC) 1.5 K/uL (0.7-4.9); Basophils % 0.6 % (0-1.3); Hematocrit 35.5 % (36.0-45.0); Lymphocytes % 18.1 % (15.3-44.8); MPV 9.6 fL (7.6-11.3); RBC Red Blood Cell Count 3.78 M/uL (3.86-4.86)
[2020-10-01 19:05] LABS: Protime INR 1.37
[2020-10-01 19:09] LABS: ALT/SGPT 11 U/L (12-78); AST/SGOT 16 U/L (15-37); Albumin 2.7 g/dL (3.4-5.0); Alkaline Phosphatase 91 U/L (45-117); BUN Blood Urea Nitrogen 15 mg/dL (7-18); Bicarbonate 25 mmol/L (21-32); Bilirubin Direct < 0.1 mg/dL (0-0.2); Bilirubin Total 0.2 mg/dL (0.2-1.0); Creatine Phosphokinase 340 U/L (26-192); Glucose Level 77 mg/dL (74-106); Lipase 33 U/L (73-393); Potassium 4.9 mmol/L (3.5-5.1); Protein, Total 6.9 g/dL (6.4-8.2); Sodium Level 146 mmol/L (136-145); Troponin (Emerg Dept Use Only) < 0.02 ng/mL (0.0-0.045)
[2020-10-01 19:32] LABS: Urine Bacteria <20 /HPF (<20); Urine RBC <5 /HPF (NONE SEEN)
--- NOTE | 2020-10-01 19:33 | EDPHYS ---
Physician Documentation [facility] Name: Jeanette Pineda Age: 75 yrs Sex: Female : 1945 Arrival Date: 10/01/2020 Time: 17:03 Bed 15 Private MD: ED Physician Shaun Tapia HPI: 10/01 17:20 This 75 yrs old Female presents to ER via EMS with complaints of Altered cp Mental Status. 17:20 The patient presents with confusion. Onset: The symptoms/episode began/occurred today. cp 17:20 Possible causes: sepsis, the patient has a known UTI history. cp 17:20 Associated signs and symptoms: Pertinent negatives: abdominal pain, chest pain, cp diarrhea, vomiting, fever. Current symptoms: In the emergency department the patient's symptoms are unchanged from the initial presentation. Historical: - Allergies: 17:09 Iodine; jl7 - Home Meds: 17:09 apixaban 5 mg BID Oral [Active]; ipratropium-albuterol 0.5 mg-3 mg(2.5 mg base)/3 mL jl7 Inhl nebu 3 mL 4 times per day [Active]; Iron CR 325 mg daily Oral [Active]; Lactobacillus acidophilus 1 cap BID Oral [Active]; Lasix 40 mg Oral tab 1 tab 2 times per day [Active]; melatonin 3 mg Oral tab 6 mg nightly [Active]; metformin 500 mg Oral tab 1 tab 2 times per day [Active]; metoprolol tartrate 12.5 mg BID Oral [Active]; multivitamin Oral tab daily [Active]; Novolog 100 unit/mL Sub-Q soln [Active]; Pepcid 20 mg Oral tab 1 tab every 12 hours [Active]; potassium chloride ER 20 meQ daily [Active]; prednisone 10 mg Oral tab once daily [Active]; prednisone 10 mg Oral tab once daily [Active]; ProAir HFA 90 mcg/actuation inhalation HFAA 1 puff every 4 hours [Active]; tramadol 50 mg Oral tab three times a day [Active]; zinc sulfate 220 mg Oral tab daily [Active]; - PMHx: 17:09 Acute and chronic respiratory failure w/ hypoxia; Chronic embolism and thrombosis; CVA; jl7 dermatitis; Diabetes - IDDM; Hypertension; UTI; wedge compression fx of L1; Depression; Anxiety; - PSHx: 17:09 Knee surgery; lumbosacral spine and pelvic fx; jl7 - Immunization history:: Adult Immunizations up to date. - Social history:: Smoking status: Patient denies any tobacco usage or history of. ROS: 17:30 Constitutional: Negative for fever. cp 17:30 Cardiovascular: Negative for chest pain. cp 17:30 Respiratory: Negative for wheezing. 17:30 Abdomen/GI: Negative for vomiting, diarrhea. 17:30 Unable to obtain ROS due to baseline dementia. Exam: 17:35 Constitutional: The patient appears in no acute distress, alert, awake, cp non-diaphoretic, non-toxic, well developed, well nourished. 17:35 Head/Face: Normocephalic, atraumatic. cp 17:35 Eyes: Periorbital structures: appear normal, Pupils: equal, round, and reactive to light and accomodation, Conjunctiva: normal, no exudate, no injection, Sclera: no appreciated abnormality, Lids and lashes: appear normal, bilaterally. 17:35 ENT: External ear(s): are unremarkable, Nose: is normal, Mouth: Lips: dry, Oral mucosa: dry, Posterior pharynx: Airway: no evidence of obstruction, patent. 17:35 Neck: ROM/movement: is normal, is supple, without pain, no range of motions limitations, no meningismus. 17:35 Chest/axilla: Inspection: normal, Palpation: is normal, no crepitus, no tenderness. 17:35 Cardiovascular: Rate: tachycardic, Rhythm: regular, Edema: is not appreciated, JVD: is not appreciated. 17:35 Respiratory: the patient does not display signs of respiratory distress, Respirations: labored breathing, is not present, intercostal retractions, are absent, shallow respirations, are not present, Breath sounds: bronchial sounds, that are mild, are heard diffusely, decreased breath sounds, are not appreciated, stridor, is not appreciated, wheezing: is not appreciated. 17:35 Abdomen/GI: Inspection: abdomen appears normal, Palpation: abdomen is soft and non-tender, in all quadrants, voluntary guarding, is not appreciated, involuntary guarding, is not appreciated. 17:35 Skin: cellulitis, is not appreciated, no rash present. 17:35 Neuro: Orientation: to person, Mentation: able to follow commands, slow to respond. 18:10 ECG was reviewed by the Attending Physician. Vital Signs: 17:03 Resp 17; Temp 98.2; Pulse Ox 100% ; Pain 0/10; jl7 17:10 BP 153 / 99; Pulse 100; zb 18:29 BP 151 / 65; Pulse 102; Resp 16; Pulse Ox 95% on 2 lpm NC; zb 19:30 BP 156 / 76; Pulse 97; Resp 16; Pulse Ox 97% on 2 lpm NC; zb 20:30 BP 155 / 71; Pulse 99; Resp 18; Pulse Ox 96% on 2 lpm NC; zb 21:30 BP 167 / 71; Pulse 74; Resp 16; Pulse Ox 96% on 2 lpm NC; zb 22:00 BP 153 / 81; Pulse 97; Resp 16; Pulse Ox 95% on 2 lpm NC; zb MDM: 17:16 Patient medically screened. 20:00 Data reviewed: vital signs, nurses notes, lab test result(s), EKG, radiologic studies, cp CT scan, plain films. 20:00 Response to treatment: the patient's symptoms have mildly improved after treatment. 20:10 Physician consultation: Ken ROWELL in the emergency department to see patient at 20:00, reviews results of labs, radiology studies and spoke with son at bedside who reports patient is at baseline mentally. Recommends discharge back to [facility]. 20:27 ED course: Working as hospitalist alysia, was called for admission for UTI, altered la1 mental status. Called [facility] discussed patient, reported to have been diagnosed with urinary tract infection 2 days prior, currently on Macrobid. Baseline mental status is alert, oriented times 1-2, usually a screening constantly, EMS was called because patient was not screaming as much as normal and seemed lethargic to staff. Patient was evaluated in the ER, patient with chronic kidney disease, GFR at baseline, urinalysis microscopic completely negative for UTI, patient with history of COVID, no acute changes on chest x-ray. White blood cell count 8 without left shift. Lactate negative, vital signs stable, patient on oxygen in the emergency department but also has oxygen at [facility]. Pro calcitonin mildly elevated 0.12, urine culture obtained from [facility], appears to be sensitive to Macrobid which she is taking currently at the [facility]. Son at bedside, discuss case with him, he reports that he believes his mother as at her baseline mental status currently. Son is comfortable having patient transferred back to [facility] for further management. Will recommend discharge to [facility] with continuation of Macrobid for what appears to be resolved urinary tract infection with close monitoring.. 10/01 17:15 Order name: Urine Culture cp 02 17:15 Order name: Basic Metabolic Panel cp 02 17:15 Order name: Blood Culture Adult (2) cp 02/ 17:15 Order name: CBC with Diff cp 10/01 17:15 Order name: CPK cp 02/ 17:15 Order name: Lactate cp 02/ 17:15 Order name: LFT's; Complete Time: 19:13 cp 10/01 19:15 Interpretation: Normal except: ALT 11; ALB 2.7; GLOB 4.2; A/G 0.6. cp 02/ 17:15 Order name: Lipase; Complete Time: 19:13 cp 10/01 17:15 Order name: Procalcitonin; Complete Time: 19:25 cp 10/01 17:15 Order name: Protime (+inr); Complete Time: 19:13 cp / 19:15 Interpretation: Abnormal: PT 15.8. cp 02/ 17:15 Order name: Ptt, Activated; Complete Time: 19:13 cp / 17:15 Order name: Troponin (emerg Dept Use Only); Complete Time: 19:13 cp / 17:15 Order name: Urine Microscopic Only; Complete Time: 19:35 cp 10/01 17:15 Order name: CT Head Brain wo Cont; Complete Time: 18:37 cp / 17:15 Order name: Cath; Complete Time: 18:57 cp 10/01 17:15 Order name: Chest Single View XRAY; Complete Time: 18:37 cp 10/01 17:16 Order name: Basic Metabolic Panel; Complete Time: 19:13 EDMS 10/01 19:16 Interpretation: Normal except: NA 146; CL 113; CRE 1.55; GFR 32; CA 8.0. cp 02/ 17:16 Order name: Blood Culture EDMS 10/01 17:16 Order name: CBC with Automated Diff; Complete Time: 19:13 EDMS 02/06 19:15 Interpretation: Normal except: RBC 3.78; HGB 11.4; HCT 35.5. cp 10/01 17:16 Order name: Creatine Phosphokinase; Complete Time: 19:13 EDMS 10/01 17:16 Order name: Lactate; Complete Time: 19:13 EDMS 10/01 19:26 Order name: Urine Dipstick--Ancillary (enter results); Complete Time: 19:49 tt3 10/01 21:57 Order name: SARS-COV-2 RT PCR EDMS 10/01 17:15 Order name: Accucheck; Complete Time: 19:31 cp 10/01 17:15 Order name: Cardiac monitoring; Complete Time: 18:12 cp 10/01 17:15 Order name: EKG - Nurse/Tech; Complete Time: 18:12 cp 10/01 17:15 Order name: IV Saline Lock - Large Bore; Complete Time: 18:46 cp 10/01 17:15 Order name: Labs collected and sent; Complete Time: 18:35 cp 10/01 17:15 Order name: O2 Per Protocol; Complete Time: 18:12 cp 10/01 17:15 Order name: O2 Sat Monitoring; Complete Time: 18:12 cp 10/01 17:15 Order name: Urine Dipstick-Ancillary (obtain specimen); Complete Time: 18:57 cp EC:10 Rate is 101 beats/min. Rhythm is regular. VT interval is normal. QRS interval is cp prolonged at 120 msec. QT interval is normal. T waves are Inverted in leads V2, V3. Interpreted by me. Reviewed by me. Administered Medications: 20:19 Drug: NS 0.9% 500 ml Route: IV; Rate: bolus; Site: right forearm; 21:27 Follow up: Response: No adverse reaction; IV Status: Completed infusion; IV Intake: zb 500ml 20:27 Drug: Cefepime 1 grams Route: IVPB; Rate: 200 ml/hr; Infused Over: 30 mins; Site: right forearm; 10/02 00:13 Follow up: Response: No adverse reaction; IV Status: Completed infusion; IV Intake: zb 100ml 02 20:57 Drug: Zithromax 500 mg Route: IVPB; Infused Over: 1 hrs; Site: right forearm; 21:57 Follow up: Response: No adverse reaction; IV Status: Completed infusion; IV Intake: zb 250ml 10/02 00:48 Drug: Ativan 0.5 mg Route: IVP; Site: right forearm; sg 01:19 Drug: HALdol (as decanoate) 5 mg Route: IM; Site: right deltoid; ll2 Disposition: 10/01 22:00 Chart complete. cp 10/02 07:03 Co-signature as Attending Physician, Shaun Tapia MD. rn Disposition: 10/01/20 20:34 Discharged to Home. Impression: Encounter for examination and observation for unspecified reason. - Condition is Stable. - Medication Reconciliation Form, Thank You Letter, Antibiotic Education, Prescription Opioid Use, SBAR form form. - Follow up: Private Physician; When: 1 - 2 days; Reason: Recheck today's complaints. - Problem is new. - Symptoms have improved. Signatures: Dispatcher [employer] EDID Vinh Weeks RN RN sg Nieto, Roman, MD MD rn Ken Ferrara, MULTIFOCAL BUTTON GENERATOR-C MULTIFOCAL BUTTON GENERATOR-Cla1 Farhat Diaz PA PA cp Juli Duncan RN RN jl7 Christina Urena RN RN ll2 María Soria RN RN zb Corrections: (The following items were deleted from the chart) 10/01 19:16 19:15 Normal except: NA 146; CL 113; CRE 1.55; GFR 32. cp cp 20:31 19:32 Hospitalization Ordered by Papo Tapia MD for Inpatient Admission. Preliminary cp diagnosis is Altered mental status, unspecified; Pneumonia due to other specified infectious organisms; Urinary tract infection, site not specified. Bed requested for Telemetry/MedSurg (Inpatient). Status is Inpatient Admission. Condition is Stable. Problem is new. Symptoms have improved. cp : 19:15 CORONAVIRUS+MR.LAB.BRZ ordered. [facility] EDID 10/02 01:38 10/01 20:34 10/01/2020 20:34 Discharged to Home. Impression: Encounter for examination sg and observation for unspecified reason. Condition is Stable. Forms are Medication Reconciliation Form, Thank You Letter, Antibiotic Education, Prescription Opioid Use. Follow up: Private Physician; When: 1 - 2 days; Reason: Recheck today's complaints. Problem is new. Symptoms have improved. cp
--- NOTE | 2020-10-01 19:33 | ER ---
Nurse's Notes [facility] Name: Jeanette Pineda Age: 75 yrs Sex: Female : 1945 Arrival Date: 10/01/2020 Time: 17:03 Bed 15 Private MD: Diagnosis: Encounter for examination and observation for unspecified reason Presentation: 10/01 17:03 Chief complaint: EMS states: Toned out for decreasing LOC x 1 day, last normal 2 days jl7 ago, UTI x 1 day. Coronavirus screen: Client denies travel out of the [place] in the last 14 days. At this time, the client does not indicate any symptoms associated with coronavirus-19. Ebola Screen: No symptoms or risks identified at this time. Risk Assessment: Do you want to hurt yourself or someone else? Patient reports no desire to harm self or others. Onset of symptoms is unknown. Care prior to arrival: Glucose check: 80. 17:03 Method Of Arrival: EMS: [facility] 17:03 Acuity: DAVE 3 [facility] 17:03 Transition of care: patient was received from another setting of care (long-term care [facility] facility)[facility]. 17:11 Initial Sepsis Screen: Does the patient meet any 2 criteria? No. Patient's initial zb sepsis screen is negative. Does the patient have a suspected source of infection? No. Patient's initial sepsis screen is negative. Historical: - Allergies: 17:09 Iodine; jl7 - Home Meds: 17:09 apixaban 5 mg BID Oral [Active]; ipratropium-albuterol 0.5 mg-3 mg(2.5 mg base)/3 mL jl Inhl nebu 3 mL 4 times per day [Active]; Iron CR 325 mg daily Oral [Active]; Lactobacillus acidophilus 1 cap BID Oral [Active]; Lasix 40 mg Oral tab 1 tab 2 times per day [Active]; melatonin 3 mg Oral tab 6 mg nightly [Active]; metformin 500 mg Oral tab 1 tab 2 times per day [Active]; metoprolol tartrate 12.5 mg BID Oral [Active]; multivitamin Oral tab daily [Active]; Novolog 100 unit/mL Sub-Q soln [Active]; Pepcid 20 mg Oral tab 1 tab every 12 hours [Active]; potassium chloride ER 20 meQ daily [Active]; prednisone 10 mg Oral tab once daily [Active]; prednisone 10 mg Oral tab once daily [Active]; ProAir HFA 90 mcg/actuation inhalation HFAA 1 puff every 4 hours [Active]; tramadol 50 mg Oral tab three times a day [Active]; zinc sulfate 220 mg Oral tab daily [Active]; - PMHx: 17:09 Acute and chronic respiratory failure w/ hypoxia; Chronic embolism and thrombosis; CVA; jl7 dermatitis; Diabetes - IDDM; Hypertension; UTI; wedge compression fx of L1; Depression; Anxiety; - PSHx: 17:09 Knee surgery; lumbosacral spine and pelvic fx; jl7 - Immunization history:: Adult Immunizations up to date. - Social history:: Smoking status: Patient denies any tobacco usage or history of. Screenin:34 Abuse screen: Denies threats or abuse. Denies injuries from another. Nutritional zb screening: No deficits noted. Tuberculosis screening: No symptoms or risk factors identified. Fall Risk Fall in past 12 months (25 points). Secondary diagnosis (15 points) dementia, impaired mobility, IV access (20 points). Ambulatory Aid- None/Bed Rest/Nurse Assist (0 pts). Gait- Normal/Bed Rest/Wheelchair (0 pts) Mental Status- Overestimates/Forgets Limitations (15 pts.). Total Meza Fall Scale indicates High Risk Score (45 or more points). Fall prevention measures have been instituted. Side Rails Up X 2 Placed Close to Nursing Station Frequent Obs/Assessments Occuring Family Present and informed to notify staff if the need to leave the bedside As available patient and family educated on Fall Prevention Program and Strategies. Assessment: 17:10 General: Appears in no apparent distress. uncomfortable, Behavior is listless, zb uncooperative. Pain: Denies pain. Neuro: Level of Consciousness is awake, Oriented to person. Cardiovascular: Capillary refill < 3 seconds in bilateral Patient's skin is warm and dry. Cardiovascular: Heart tones S1 S2 present Murmur Rhythm is atrial fibrillation. Respiratory: Reports cough that is productive, Airway is patent Respiratory effort is even, unlabored, Respiratory pattern is regular, symmetrical, Breath sounds with rales Breath sounds with wheezes the patient has moderate shortness of breath. GI: Abdomen is round obese. : Parent/caregiver report the patient having UTI history. EENT: No deficits noted. Derm: Skin is intact, is thin, with poor turgor Skin is dry, Skin is jaundiced, Skin temperature is warm. Musculoskeletal: Capillary refill < 3 seconds, in bilateral fingers. Range of motion: limited in LLE/ RLE. 18:10 Reassessment: Patient appears in no apparent distress at this time. Patient and/or zb family updated on plan of care and expected duration. Pain level reassessed. son at bedside. discussed plan of care with patient and son. 19:10 Reassessment: Patient appears in no apparent distress at this time. Patient and/or zb family updated on plan of care and expected duration. Pain level reassessed. Dan placed. received urine. 20:10 Reassessment: Patient appears in no apparent distress at this time. Family at bedside. zb pt ready for d/c after completion of IV fluids and abx. 21:10 Reassessment: Patient appears in no apparent distress at this time. pt aox1. IV fluids/ zb abx infusing. d/c pending IV fusion. 22:05 Reassessment: IV infusion completion. discussed POC w/ patient. family member has left. zb 23:10 Reassessment: pt waiting EMS for transfer. zb 10/02 00:08 Reassessment: discussed ARIELA Neumanncare transport nurse for patient must be done by hospital. zb 01:45 Reassessment: report given to EMS. ll2 Vital Signs: 10/01 17:03 Resp 17; Temp 98.2; Pulse Ox 100% ; Pain 0/10; jl7 17:10 BP 153 / 99; Pulse 100; zb 18:29 BP 151 / 65; Pulse 102; Resp 16; Pulse Ox 95% on 2 lpm NC; zb 19:30 BP 156 / 76; Pulse 97; Resp 16; Pulse Ox 97% on 2 lpm NC; zb 20:30 BP 155 / 71; Pulse 99; Resp 18; Pulse Ox 96% on 2 lpm NC; zb 21:30 BP 167 / 71; Pulse 74; Resp 16; Pulse Ox 96% on 2 lpm NC; zb 22:00 BP 153 / 81; Pulse 97; Resp 16; Pulse Ox 95% on 2 lpm NC; zb ED Course: 17:03 Patient arrived in ED. jl7 17:04 Farhat Diaz PA is PHCP. cp 17:04 Shaun Tapia MD is Attending Physician. cp 17:05 Maíra Soria, ARIELA is Primary Nurse. zb 17:05 Triage completed. jl7 17:09 Arm band placed on right wrist. jl7 17:35 Chest Single View XRAY In Process Unspecified. EDMS 17:42 CT Head Brain wo Cont In Process Unspecified. EDMS 18:04 Patient has correct armband on for positive identification. Bed in low position. Call 5 light in reach. Side rails up X2. Adult w/ patient. Warm blanket given. monitoring tech on. Pulse ox on. NIBP on. 18:04 Missed attempt(s): 18 gauge in left antecubital area. 20 gauge in left forearm. [facility] 18:05 EKG done, by ED staff, reviewed by Farhat JOE. [facility] 18:28 Initial lab(s) drawn, by ia. Inserted saline lock: 22 gauge in right forearm, using iw aseptic technique. Blood collected. 18:58 Initial lab(s) drawn, by ED staff, sent to lab. Dan cath inserted, using sterile [facility] technique, 16 Fr., by ED staff, balloon inflated, to gravity drainage, urine specimen collected. 19:30 Papo Tapia MD is Hospitalizing Provider. cp Administered Medications: 20:19 Drug: NS 0.9% 500 ml Route: IV; Rate: bolus; Site: right forearm; zb 21:27 Follow up: Response: No adverse reaction; IV Status: Completed infusion; IV Intake: zb 500ml 20:27 Drug: Cefepime 1 grams Route: IVPB; Rate: 200 ml/hr; Infused Over: 30 mins; Site: right zb forearm; 10/02 00:13 Follow up: Response: No adverse reaction; IV Status: Completed infusion; IV Intake: zb 100ml 02 20:57 Drug: Zithromax 500 mg Route: IVPB; Infused Over: 1 hrs; Site: right forearm; zb 21:57 Follow up: Response: No adverse reaction; IV Status: Completed infusion; IV Intake: zb 250ml 10/02 00:48 Drug: Ativan 0.5 mg Route: IVP; Site: right forearm; 01:19 Drug: HALdol (as decanoate) 5 mg Route: IM; Site: right deltoid; ll2 Intake: 10/01 21:27 IV: 500ml; Total: 500ml. zb 21:57 IV: 250ml; Total: 750ml. zb 10/02 00:13 IV: 100ml; Total: 850ml. zb Outcome: 10/01 19:32 Decision to Hospitalize by Provider. cp 20:34 Discharge ordered by MD. cp 22:20 [facility] Report called to ARIELA Neumann 22:20 Condition: stable 22:20 Discharge instructions given to patient, pen[facility]entiary, Instructed on discharge instructions, follow up and referral plans. Demonstrated understanding of instructions, follow-up care. 10/02 01:38 Patient left the ED. sg Signatures: Dispatcher [employer] EDMS Vinh Weeks RN Mary Field RN RN Farhat Willis PA PA cp Martinez, Maria 5 Juli Duncan RN RN jl7 Christina Urena RN RN ll2 María Soria RN RN zhermilo Corrections: (The following items were deleted from the chart) 10/01 22:21 19:00 No provider procedures requiring assistance completed. zb zb : 19:00 IV discontinued, intact, bleeding controlled, No redness/swelling at site. zb Pressure dressing applied, zb
[2020-10-01 19:47] LABS: Urine Blood 2+ (NEG); Urine Glucose NEGATIVE (NEG); Urine Protein 1+ (NEG); Urine Specific Gravity 1.025 (1.005-1.030); Urine pH 5.5 (5.0-7.0)
[2020-10-01] MEDS ORDERED: AZITHROMYCIN 500 MG INJ IVPB ONE (20:18)
[2020-10-01] MEDS ORDERED: NA CHLORIDE 0.9% 250 ML ONE (20:18)
[2020-10-01] MEDS ORDERED: NA CHLORIDE 0.9% 500 ML ONE (20:18)
[2020-10-01] MEDS ORDERED: NA CHLORIDE 0.9% 100 ML ONE (20:35)
[2020-10-01] MEDS ORDERED: CEFEPIME/SWI 1gm 10 ML ONE (20:35)
[2020-10-02] MEDS ORDERED: LORazepam 2 MG/ML VIAL ONE (00:59)
[2020-10-02] MEDS ORDERED: HALOPERIDOL LACT 5 MG/ML INJ ONE ×2 (01:37→01:44)
[2020-10-02 01:42] VITALS: TEMP 98.2
[2020-10-02 01:49] VITALS: BP 153/81; O2SAT 95
== END 2020-10-02 01:38 | disposition home or self-care (01) ==
LOC: ER 17:01
DX: R41.0 Disorientation, unspecified (principal); Z20.822 Contact with and (suspected) exposure to COVID-19; I10 Essential (primary) hypertension; E11.9 Type 2 diabetes mellitus without complications; F41.8 Other specified anxiety disorders; Z79.4 Long term (current) use of insulin; Z86.73 Personal history of transient ischemic attack (TIA), and cerebral infarction without residual deficits; Z91.048 Other nonmedicinal substance allergy status
CPT/HCPCS: 93005; 87040 ×2; 85025; 80048; 36415; 82550; 85610; 80076; 83605; 85730; 84484; 83690; 84145; 70450; 71045; U0003; J1630; J0456; J0692; J7050; J7040; 51702; 81003; 81015; 96365; 96366; 96372; 96375; 99285

== ENCOUNTER 2020-11-11 14:07 | Emergency (ER) | payer OTHER ==
--- NOTE | 2020-11-11 15:26 | RAD REPORT ---
EXAM DESCRIPTION: RAD - Hand Right 2 View - 11/11/2020 3:05 pm CLINICAL HISTORY: SMASH INJURY COMPARISON: No comparisons FINDINGS: Mildly displaced tuft fracture is present involving the fifth finger. The bones are diffus [place] demineralized with multi joint arthritic changes present.
[2020-11-11] MEDS ORDERED: LIDOCAINE 1% 20 ML MDV ONE (17:22)
--- NOTE | 2020-11-11 18:11 | ER ---
Nurse's Notes [facility] Name: Jeanette Pineda Age: 75 yrs Sex: Female : 1945 Arrival Date: 11/11/2020 Time: 14:12 Bed 25 Private MD: Diagnosis: Laceration without foreign body of left little finger with damage to nail;Displaced fracture of distal phalanx of finger Presentation: 11/11 14:16 Chief complaint: EMS states: Was called to [facility] because pt cut right pinky with vg1 "something" sharp in bed; lac noted to the Right pinky. EMS stated pt is DNR and on hospice. Coronavirus screen: Client denies travel out of the [place] in the last 14 days. Ebola Screen: Patient negative for fever greater than or equal to 101.5 degrees Fahrenheit, and additional compatible Ebola Virus Disease symptoms. Complicating Factors: There are no complicating factors for this patient. Initial Sepsis Screen: Does the patient meet any 2 criteria? No. Patient's initial sepsis screen is negative. Does the patient have a suspected source of infection? No. Patient's initial sepsis screen is negative. Risk Assessment: Do you want to hurt yourself or someone else? Patient reports no desire to harm self or others. Onset of symptoms was November 11, 2020. 14:16 Method Of Arrival: EMS: [place] [address] 14:16 Acuity: DAVE 3 vg1 Historical: - Allergies: 14:21 Iodine; vg1 - PMHx: 14:21 Acute and chronic respiratory failure w/ hypoxia; Anxiety; CVA; dermatitis; vg1 Hypertension; wedge compression fx of L1; Chronic embolism and thrombosis; Diabetes - IDDM; UTI; Depression; - Immunization history:: Adult Immunizations up to date. - Social history:: Smoking status: unknown. Screenin:24 Abuse screen: Denies threats or abuse. Nutritional screening: No deficits noted. vg1 Tuberculosis screening: No symptoms or risk factors identified. Fall Risk No fall in past 12 months (0 pts). No secondary diagnosis (0 pts). No IV (0 pts). Ambulatory Aid- None/Bed Rest/Nurse Assist (0 pts). Gait- Normal/Bed Rest/Wheelchair (0 pts) Mental Status- Oriented to own ability (0 pts). Total Meza Fall Scale indicates No Risk (0-24 pts). Assessment: 14:21 General: Appears in no apparent distress. comfortable, Behavior is calm, cooperative. vg1 Pain: Denies pain. Neuro: Level of Consciousness is awake, alert, obeys commands. Cardiovascular: Patient's skin is warm and dry. Respiratory: Airway is patent Respiratory effort is even, unlabored, Respiratory pattern is regular, symmetrical, Suction at bedside, pt has auditory gurgling. ARIELA Hernandez suctioned pt. Breath sounds with crackles bilaterally. GI: No signs and/or symptoms were reported involving the gastrointestinal system. : No signs and/or symptoms were reported regarding the genitourinary system. EENT: Oral mucosa is dry. Derm: Wound noted dorsal aspect of distal phalanx of right little finger and palmar aspect of distal phalanx of right little finger. Musculoskeletal: Circulation, motion, and sensation intact. Injury Description: Laceration sustained to dorsal aspect of distal phalanx of right little finger and palmar aspect of distal phalanx of right little finger is jagged, bleeding moderately. 14:30 Reassessment: called to get report from ARIELA Kennedy at [facility], states that they iw think the pt may have gotten her right pinky caught in the spoke of a wheelchair while transferring her , pt is on hospice and is aDNR, pt requires continuous O2 and has recently needed suctioning , pt's son has been contacted. 15:40 Reassessment: Patient appears in no apparent distress at this time. No changes from vg1 previously documented assessment. Patient and/or family updated on plan of care and expected duration. Pain level reassessed. Pt resting with eyes closed. 16:51 Reassessment: Patient appears in no apparent distress at this time. No changes from vg1 previously documented assessment. Pt resting with eyes closed. 17:41 Reassessment: Provider at bedside placing sutures to Right pinky. vg1 17:49 Reassessment: report given to Ashley at [facility], states she will arrange iw transportation back to facility. 19:16 Reassessment: Pt up for d/c, awaiting for transportation back to [facility]. vg1 21:01 Reassessment: Attempted to call facility on ETA. vg1 21:06 Reassessment: Attempted to speak with nurse about transportation. dm5 Vital Signs: 14:16 BP 97 / 53; Pulse 60; Resp 22; Temp 98.7; Pulse Ox 95% on 2 lpm NC; Weight 67.59 kg; vg1 Height 5 ft. 5 in. (165.10 cm); Pain 0/10; 14:25 BP 97 / 53; Pulse 68; Resp 18; Pulse Ox 99% on 2 lpm NC; dh4 15:34 BP 100 / 55; Pulse 70; Resp 22; Pulse Ox 93% on 3 lpm NC; vg1 16:51 BP 99 / 54; Pulse 68; Resp 22; Pulse Ox 93% on 3 lpm NC; vg1 17:00 BP 101 / 56; Pulse 120; Resp 18; Pulse Ox 91% on 3 lpm NC; vg1 14:16 Body Mass Index 24.79 (67.59 kg, 165.10 cm) vg1 ED Course: 14:12 Patient arrived in ED. vg1 14:18 Triage completed. vg1 14:25 Patient has correct armband on for positive identification. Bed in low position. Call vg1 light in reach. Side rails up X2. 14:25 Arm band placed on. vg1 14:29 Uvaldo Sanford PA is PHCP. jr8 14:29 Buzz Schrader MD is Attending Physician. jr8 14:30 Val Guillen RN is Primary Nurse. vg1 15:04 Hand Right 2 View XRAY In Process Unspecified. EDMS 18:10 Lazaro Cummings MD is Referral Physician. jr8 21:14 Assist provider with laceration repair. Patient did not have IV access during this 1 emergency room visit. Administered Medications: No medications were administered Outcome: 18:11 Discharge ordered by . jr8 21:14 Discharged to [facility]. transfer back to facility via ambulance vg1 21:14 Condition: good 21:14 Discharge instructions given to [facility], Instructed on discharge instructions, follow up and referral plans. medication usage, Demonstrated understanding of instructions, follow-up care, medications, Prescriptions given X 1. 21:15 Patient left the ED. vg1 Signatures: Dispatcher [employer] EDMS Misty Gil RN RN 5 Mary Bonilla RN RN Uvaldo Sanford PA PA [facility] Daniele Miranda [facility] Val Guillen RN ARIELA vg1 Corrections: (The following items were deleted from the chart) 14:32 14:16 Chief complaint: EMS states: Was called to [facility] due to Pt has a lac on the vg1 Right pinky. Stated pt is DNR and on hospice. vg1
--- NOTE | 2020-11-11 18:11 | EDPHYS ---
Physician Documentation [facility] Name: Jeanette Pineda Age: 75 yrs Sex: Female : 1945 Arrival Date: 11/11/2020 Time: 14:12 Bed 25 Private MD: ED Physician Buzz Schrader HPI: 11/11 14:35 This 75 yrs old Female presents to ER via EMS with complaints of Laceration. jr8 14:35 Onset: The symptoms/episode began/occurred suddenly, today. EMS reports from nursing [facility] that there may have been something sharp in the bed. [facility] called report to CN and said it may have happened when she was transferred from wheelchair but they were unsure. Pt is alert but communication is difficult. She can answer close ended questions. She denies pain but gave affirmation that injury happened with wheelchair. Tip of R fifth digit is disconnected with nail. bleeding is controlled. Was notified she is DNR. Historical: - Allergies: 14:21 Iodine; vg1 - PMHx: 14:21 Acute and chronic respiratory failure w/ hypoxia; Anxiety; CVA; dermatitis; vg1 Hypertension; wedge compression fx of L1; Chronic embolism and thrombosis; Diabetes - IDDM; UTI; Depression; - Immunization history:: Adult Immunizations up to date. - Social history:: Smoking status: unknown. ROS: 14:38 Cardiovascular: Negative for chest pain, palpitations, and edema. jr8 14:38 Constitutional: Positive for chronic illness bed bound. 14:38 Constitutional: Positive for 14:38 Respiratory: Positive for 14:38 MS/extremity: Positive for injury or acute deformity, of the right hand. 14:38 Unable to obtain ROS due to patient's speech is incomprehensible. Exam: 14:40 Cardiovascular: Rate: normal, Pulses: Pulses are 2+ in right radial artery and left jr8 radial artery. 14:40 Respiratory: the patient does not display signs of respiratory distress, Respirations: normal, Breath sounds: rhonchi, that are moderate, Baseline. 14:40 Musculoskeletal/extremity: Extremities: noted in the Tip of 5th digit of right hand: deformity, laceration, tenderness, Nails: partial avulsion, of the palmar aspect of distal phalanx of right little finger and right little fingernail. 18:12 Eyes: Pupils equal round and reactive to light, extra-ocular motions intact. Lids and jr8 lashes normal. Conjunctiva and sclera are non-icteric and not injected. Cornea within normal limits. Periorbital areas with no swelling, redness, or edema. Skin: Warm, dry with normal turgor. Normal color with no rashes, no lesions, and no evidence of cellulitis. Neuro: Alert to verbal stimulus only. Confused. Cranial nerves II-XII grossly intact. Motor strength 3/5 in all extremities. Sensory grossly intact. Vital Signs: 14:16 BP 97 / 53; Pulse 60; Resp 22; Temp 98.7; Pulse Ox 95% on 2 lpm NC; Weight 67.59 kg; vg1 Height 5 ft. 5 in. (165.10 cm); Pain 0/10; 14:25 BP 97 / 53; Pulse 68; Resp 18; Pulse Ox 99% on 2 lpm NC; dh4 15:34 BP 100 / 55; Pulse 70; Resp 22; Pulse Ox 93% on 3 lpm NC; vg1 16:51 BP 99 / 54; Pulse 68; Resp 22; Pulse Ox 93% on 3 lpm NC; vg1 17:00 BP 101 / 56; Pulse 120; Resp 18; Pulse Ox 91% on 3 lpm NC; vg1 14:16 Body Mass Index 24.79 (67.59 kg, 165.10 cm) vg1 Laceration: 18:04 Wound Repair of 2.5cm ( 1.0in ) subcutaneous laceration to palmar aspect of distal jr8 phalanx of right little finger. Distal neuro/vascular/tendon intact. Anesthesia: Local anesthetic administered with 1 mls of 1% lidocaine. Wound prep: Moderate cleansing with betadine, Wound irrigation with saline, Wound explored extensively, Copious irrigation. Skin closed with 5 4-0 Prolene using interrupted sutures and sterile technique. Patient tolerated well. MDM: 14:29 Patient medically screened. jr8 14:43 Data reviewed: vital signs, nurses notes, EMS record, radiologic studies. Data jr8 interpreted: monitoring manager: rate is 68 beats/min, Pulse oximetry: on 2L(s) per nasal canula, is 100 %. Interpretation: acceptable. 18:04 Counseling: I had a detailed discussion with the patient and/or guardian regarding: the jr8 historical points, exam findings, and any diagnostic results supporting the discharge/admit diagnosis, radiology results, the need for outpatient follow up, a hand specialist, to return to the emergency department if symptoms worsen or persist or if there are any questions or concerns that arise at home. ED course: Discussed with NH that patient needs to f/u with Dr. Cummings who I called and will see patient on Saturday . 11/11 14:32 Order name: Hand Right 2 View XRAY; Complete Time: 15:30 jr8 11/11 14:44 Order name: Misc. Order: Deep suction by Respiratory; Complete Time: 14:50 jr8 Administered Medications: No medications were administered Disposition: 11/11/20 18:11 Discharged to Home. Impression: Laceration without foreign body of left little finger with damage to nail, Displaced fracture of distal phalanx of finger. - Condition is Stable. - Discharge Instructions: Finger Fracture, Laceration Care, Adult. - Prescriptions for Keflex 500 mg Oral Capsule - take 1 capsule by ORAL route every 8 hours for 10 days; 30 capsule. - Medication Reconciliation Form, Thank You Letter, Antibiotic Education, Prescription Opioid Use form. - Follow up: Lazaro Cummings MD; When: 2 - 3 days; Reason: Wound Recheck, Recheck today's complaints, Continuance of care, Re-evaluation by your physician. - Problem is new. - Symptoms have improved. Addendum: 11/13/2020 01:14 Co-signature as Attending Physician, Buzz Schrader MD I agree with the assessment and k dr plan of care. Signatures: Dispatcher [employer] EDMS Buzz Schrader MD MD [facility] Uvaldo Sanford PA PA 8 Val Guillen, RN RN vg1 Corrections: (The following items were deleted from the chart) 11/11 14:45 14:35 EMS reports from senior living that there may have been something sharp in the jrDaniel bed. [facility] called report to CN and said it may have happened when she was transferred from wheelchair but they were unsure. Pt is alert but communication is difficult. She can answer close ended questions. She denies pain but gave affirmation that injury happened with wheelchair. Tip of R fifth digit is disconnected with nail. bleeding is controlled. . 8 18:11 18:11 11/11/2020 18:11 Discharged to Home. Impression: Laceration without foreign body jr8 of left little finger with damage to nail. Condition is Stable. Forms are Medication Reconciliation Form, Thank You Letter, Antibiotic Education, Prescription Opioid Use. Follow up: Lazaro Cummings; When: 2 - 3 days; Reason: Wound Recheck, Recheck today's complaints, Continuance of care, Re-evaluation by your physician. Problem is new. Symptoms have improved. jr8 21:15 18:11 11/11/2020 18:11 Discharged to Home. Impression: Laceration without foreign body vg1 of left little finger with damage to nail; Displaced fracture of distal phalanx of finger. Condition is Stable. Forms are Medication Reconciliation Form, Thank You Letter, Antibiotic Education, Prescription Opioid Use. Follow up: Lazaro Cummings; When: 2 - 3 days; Reason: Wound Recheck, Recheck today's complaints, Continuance of care, Re-evaluation by your physician. Problem is new. Symptoms have improved. jr8
[2020-11-11 21:22] VITALS: TEMP 98.7
[2020-11-11 21:33] VITALS: BP 101/56; O2SAT 91
== END 2020-11-11 21:15 | disposition home or self-care (01) ==
LOC: ER 14:07
PROC: 0JQJ0ZZ Repair Right Hand Subcutaneous Tissue and Fascia, Open Approach (ICD-10-PCS; principal; 2020-11-11)
DX: S61.316A Laceration without foreign body of right little finger with damage to nail, initial encounter (principal); S62.636A Displaced fracture of distal phalanx of right little finger, initial encounter for closed fracture; W26.9XXA Contact with unspecified sharp object(s), initial encounter; Y93.9 Activity, unspecified; Y92.122 Bedroom in nursing home as the place of occurrence of the external cause; I10 Essential (primary) hypertension; Z91.048 Other nonmedicinal substance allergy status
CPT/HCPCS: 99284